=== PATIENT | female | born 1980 | race Caucasian/White ===

== ENCOUNTER 2017-05-15 15:18 | Emergency (ER) | payer MEDICAID, OTHER ==
[2017-05-15 18:05] VITALS: BP 147/102
[2017-05-15] MEDS ORDERED: TETANUS/DIPHTHERIA/PERTUSSIS 0.5 ML SYRINGE IM ONE ×2 (18:11→18:21)
--- NOTE | 2017-05-15 18:22 | ED Physician Documentation ---
History of Present Illness - Stated complaint Stated Complaint: L KNEE LAC - Chief complaint Chief Complaint: Ext Problem - History obtained from History obtained from: Patient (pt here for lceration to the left knee. states that she cut it on her desk.) Review of Systems Skin: reports: Laceration (s) (left knee) Musculoskeletal: denies: Extremity pain, Joint pain, Joint swelling Neurologic: denies: Focal weakness, Numbness PD PAST MEDICAL HISTORY - Past Medical History Past Medical History: No - Past Surgical History Past Surgical History: No - Present Medications Home Medications: Ambulatory Orders Medication Instructions Recorded Confirmed No Known Home Medications [No 05/15/17 05/15/17 Known Home Medications] - Allergies Allergies/Adverse Reactions: Allergies Allergy/AdvReac Type Severity Reaction Status Date / Time No Known Drug Allergies Allergy Verified 05/15/17 15:56 - Social History Does the pt smoke?: No Smoking Status: Never smoker PD ED PE NORMAL - Vitals Vital signs reviewed: Yes - General General: Alert and oriented X 3, No acute distress - Derm Derm: Other (2 cm laceration to the left anterior knee no active bleeding. ) - Extremities Extremities: Other (laceration to the left knee. ) - Neuro Neuro: Other (sensation intact to the left knee ) Results - Vitals Vitals: Vital Signs - 24 hr 05/15/17 05/15/17 15:54 18:04 Temperature 36.6 C Heart Rate 88 82 Respiratory 17 16 Rate Blood Pressure 140/81 H 147/102 H O2 Saturation 99 100 Oxygen O2 Source Room air Procedures - Laceration (location) knee Wound type: Linear Neurovascular status: Sensory intact, Vascular intact Anesthesia: Lidocaine 2% (3cc) Wound Preparation: Irrigated copiously NS Skin layer closure: Sutures - enter # (4), Other (3-0 vicryl) Other: Patient tolerated well Complexity: Simple PD MEDICAL DECISION MAKING - ED course Complexity details: d/w patient ED course: pt with 2 cm laceration to the knee. closed per above. N/V intact. pt given care instruction. Departure - Departure Disposition: 01 Home, Self Care Clinical Impression: Laceration Condition: Good Instructions: ED Laceration Sure Close Follow-Up: Andi Hunt MD [Primary Care Provider] - Comments: Keep the area clean and dry. Have the sutures removed in 10 days. return to the ER for any new or worsening symptoms
== END 2017-05-15 18:29 | disposition home or self-care (01) ==
LOC: ED 15:18
DX: S81.012A Laceration without foreign body, left knee, initial encounter (principal); W45.8XXA Other foreign body or object entering through skin, initial encounter; Z23 Encounter for immunization
CPT/HCPCS: 12001; 90471; 99282; 99283

== ENCOUNTER 2019-05-17 14:11 | Emergency (ER) | payer SELFPAY ==
[2019-05-17] MEDS ORDERED: SODIUM CHLORIDE 0.9% 1,000 ML IV ONE ×2 (14:30)
[2019-05-17] MEDS ORDERED: METOCLOPRAMIDE 10 MG/2 ML VIAL IVP STA (14:30)
--- NOTE | 2019-05-17 14:31 | ED Physician Documentation ---
PD HPI NVD - Stated complaint Stated Complaint: N/V - Chief complaint Chief Complaint: Abd Pain - History obtained from History obtained from: Patient - History of Present Illness Timing - onset: Other (G3, P2 at 9-1/2 weeks with vomiting for the last 6 days despite trying B6, Unisom, Phenergan, and Zofran at home. No abdominal pain, cramping or bleeding. She has a history of hyperemesis with previous pregnancies.) Review of Systems Constitutional: denies: Fever, Chills, Myalgias Cardiac: reports: Reviewed and negative Respiratory: reports: Reviewed and negative GI: reports: Nausea, Vomiting. denies: Abdominal Pain, Diarrhea PD PAST MEDICAL HISTORY - Past Surgical History Past Surgical History: No - Present Medications Home Medications: Ambulatory Orders Medication Instructions Recorded Confirmed Metoclopramide [Reglan] 10 mg PO Q6H PRN #20 tablet 05/17/19 - Allergies Allergies/Adverse Reactions: Allergies Allergy/AdvReac Type Severity Reaction Status Date / Time No Known Drug Allergies Allergy Verified 05/17/19 14:17 - Social History Does the pt smoke?: No Smoking Status: Never smoker PD ED PE NORMAL - Vitals Vital signs reviewed: Yes - General General: Alert and oriented X 3, No acute distress - Respiratory Respiratory: No respiratory distress - Abdomen Abdomen: Normal bowel sounds, Soft, Non tender - Female Female : Other (Bedside ultrasound demonstrates single live intrauterine with heart rate of 165) - Neuro Neuro: Alert and oriented X 3, Normal speech Results - Vitals Vitals: Vital Signs - 24 hr 05/17/19 05/17/19 14:17 14:19 Temperature 36.5 C Heart Rate 86 86 Respiratory 14 14 Rate Blood Pressure 138/77 H 138/77 H O2 Saturation 99 99 Oxygen O2 Source Room air - Labs Labs: Laboratory Tests 05/17/19 05/17/19 05/17/19 14:20 14:20 14:42 Sodium 136 Potassium 3.4 L Chloride 102 Carbon Dioxide 23 Anion Gap 11.0 BUN 10 Creatinine 0.7 Estimated GFR (MDRD) 95 Glucose 91 Calcium 9.5 Total Bilirubin 1.3 H AST 17 ALT 14 Alkaline Phosphatase 32 L Total Protein 7.8 Albumin 4.6 Globulin 3.2 Albumin/Globulin Ratio 1.4 Lipase 41 Urine Color YELLOW Urine Clarity CLOUDY Urine pH 6.0 Ur Specific [place] >=1.030 H 1.030 Urine Protein NEGATIVE Urine Glucose (UA) NEGATIVE Urine Ketones 80 Urine Occult Blood NEGATIVE Urine Nitrite NEGATIVE Urine Bilirubin NEGATIVE Urine Urobilinogen 0.2 (NORMAL) Ur Leukocyte Esterase SMALL H Urine RBC 0-5 Urine WBC 0-3 Ur Squamous Epith Cells MANY Squamous H Urine Bacteria Rare Urine Mucus Moderate Strands Ur Microscopic Review INDICATED Urine Culture Comments NOT INDICATED Urine HCG, Qual POSITIVE PD MEDICAL DECISION MAKING - ED course ED course: 38-year-old woman with apparent hyperemesis gravidarum. After some antiemetics and IV fluids she was feeling much better and passed an oral challenge. Departure - Departure Disposition: Home, Self Care Clinical Impression: Hyperemesis gravidarum Condition: Good Record reviewed to determine appropriate education?: Yes Instructions: ED Preg Morning Sickness Prescriptions: Metoclopramide [Reglan] 10 mg PO Q6H PRN #20 tablet PRN Reason: nausea or headache Comments: Call your doctor to arrange a follow-up appointment, make the next available appointment. In the interim, return anytime if worse or if new symptoms develop.
[2019-05-17 14:40] LABS: CLARITY,URINE CLOUDY (CLEAR); KETONES,URINE (UA) 80 mg/dL (NEGATIVE); LEUKOCYTE ESTERASE, URINE SMALL (NEGATIVE); NITRITE,URINE NEGATIVE (NEGATIVE); OCCULT BLOOD,URINE NEGATIVE (NEGATIVE); PROTEIN,URINE NEGATIVE (NEGATIVE); UROBILINOGEN,URINE 0.2 (NORMAL) E.U./dL (NORMAL)
[2019-05-17 14:41] LABS: BILIRUBIN,URINE NEGATIVE (NEGATIVE); GLUCOSE, URINE (UA) NEGATIVE (NEGATIVE); ICTOTEST,URINE NEGATIVE
[2019-05-17 14:45] LABS: BACTERIA,URINE Rare /HPF (None Seen); MUCUS,URINE Moderate Strands; RBC,URINE 0-5 /HPF (0-5); SQUAMOUS EPITHELIAL CELL,UR MANY Squamous (<= Few)
[2019-05-17 14:52] LABS: HCG UR QUAL POSITIVE
[2019-05-17 15:16] LABS: ALBUMIN 4.6 g/dL (3.2-5.5); ALBUMIN/GLOBULIN RATIO 1.4 (1.0-2.2); BILIRUBIN,TOTAL 1.3 mg/dL (0.2-1.0); CALCIUM 9.5 mg/dL (8.5-10.3); CREATININE 0.7 mg/dL (0.4-1.0); TOTAL PROTEIN 7.8 g/dL (6.7-8.2)
[2019-05-17 16:46] VITALS: BP 117/63
== END 2019-05-17 16:49 | disposition home or self-care (01) ==
LOC: ED 14:11
DX: O21.0 Mild hyperemesis gravidarum (principal); Z3A.09 9 weeks gestation of pregnancy
CPT/HCPCS: 36415; 80053; 81001; 81025; 83690; 96361; 96374; 99284; J2765; 81003; 87086

== ENCOUNTER 2019-06-08 06:30 | Observation (INO) | payer OTHER ==
[2019-06-08 06:58] LABS: BILIRUBIN,URINE NEGATIVE (NEGATIVE); GLUCOSE, URINE (UA) NEGATIVE (NEGATIVE); KETONES,URINE (UA) NEGATIVE (NEGATIVE); LEUKOCYTE ESTERASE, URINE NEGATIVE (NEGATIVE); NITRITE,URINE NEGATIVE (NEGATIVE); OCCULT BLOOD,URINE NEGATIVE (NEGATIVE); PROTEIN,URINE NEGATIVE (NEGATIVE); UROBILINOGEN,URINE 0.2 (NORMAL) E.U./dL (NORMAL)
[2019-06-08 07:10] LABS: CLARITY,URINE CLEAR (CLEAR)
--- NOTE | 2019-06-08 07:29 | ED Physician Documentation ---
History of Present Illness - Stated complaint Stated Complaint: FEMALE - Chief complaint Chief Complaint: Abd Pain - Additonal information Additional information: This is a 38-year-old G3, P2 female at 13 weeks with a confirmed intrauterine by a 7-week ultrasound done at [place], who is now established with Dr. Burrell, who presents with suprapubic pain. Patient has had hyperemesis gravidarum and she has been taking Reglan every 6 hours and and she recently had an diphenhydramine 25 mg at night. This is controlled her hyperemesis quite well, but over the last several nights she has had to wake up frequently to urin ate about 6 times a night. She noted that she was not urinating very much each time. Last night she tried to urinate and she was unable to so she stood up walked around tried taking a shower nothing seemed to work and pressure suprapubically was getting worse so she presented to the emergency department. Here she had a bladder scan which was shown to have 700 cc of urine, straight cath was performed and patient had relief of her symptoms. She is never had urinary retention in the past. She denies constipation. She denies fever or dysuria. Review of Systems Constitutional: denies: Fever Cardiac: denies: Chest pain / pressure GI: reports: Abdominal Pain : reports: Frequency PD PAST MEDICAL HISTORY - Past Medical History Past Medical History: No - Past Surgical History Past Surgical History: No - Allergies Allergies/Adverse Reactions: Allergies Allergy/AdvReac Type Severity Reaction Status Date / Time No Known Drug Allergies Allergy Verified 05/17/19 14:17 - Social History Does the pt smoke?: No Smoking Status: Never smoker Does the pt drink ETOH?: No Does the pt have substance abuse?: No - Immunizations Immunizations are current?: Yes - POLST Patient has POLST: No PD ED PE NORMAL - Vitals Vital signs reviewed: Yes - General General: Alert and oriented X 3, No acute distress - HEENT HEENT: PERRL - Cardiac Cardiac: RRR - Respiratory Respiratory: Clear bilaterally - Abdomen Abdomen: Normal bowel sounds, Soft, Non tender, Non distended - Derm Derm: Warm and dry - Extremities Extremities: No deformity - Neuro Neuro: Alert and oriented X 3 - Psych Psych: Normal mood, Normal affect Results - Vitals Vitals: Oxygen O2 Source Room air - Labs Labs: Laboratory Tests 06/08/19 06/08/19 06/08/19 06:48 07:51 07:51 WBC RBC Hgb Hct MCV MCH MCHC RDW Plt Count MPV Neut # (Auto) Lymph # (Auto) [place] # (Auto) Eos # (Auto) Baso # (Auto) Absolute Nucleated RBC Nucleated RBC % Sodium 135 Potassium 3.6 Chloride 103 Carbon Dioxide 24 Anion Gap 8.0 BUN 7 Creatinine 0.6 Estimated GFR (MDRD) 113 Glucose 89 Calcium 9.1 TSH 1.51 Urine Color YELLOW Urine Clarity CLEAR Urine pH 7.0 Ur Specific [place] 1.010 Urine Protein NEGATIVE Urine Glucose (UA) NEGATIVE Urine Ketones NEGATIVE Urine Occult Blood NEGATIVE Urine Nitrite NEGATIVE Urine Bilirubin NEGATIVE Urine Urobilinogen 0.2 (NORMAL) Ur Leukocyte Esterase NEGATIVE Ur Microscopic Review NOT INDICATED Urine Culture Comments NOT INDICATED Rubella IgG Antibody 102.8 06/08/19 07:51 WBC 6.8 RBC 4.36 Hgb 12.7 Hct 38.1 MCV 87.4 MCH 29.1 MCHC 33.3 RDW 12.4 Plt Count 239 MPV 11.2 H Neut # (Auto) 5.0 Lymph # (Auto) 1.2 L [place] # (Auto) 0.4 Eos # (Auto) 0.1 Baso # (Auto) 0.1 Absolute Nucleated RBC 0.00 Nucleated RBC % 0.0 Sodium Potassium Chloride Carbon Dioxide Anion Gap BUN Creatinine Estimated GFR (MDRD) Glucose Calcium TSH Urine Color Urine Clarity Urine pH Ur Specific [place] Urine Protein Urine Glucose (UA) Urine Ketones Urine Occult Blood Urine Nitrite Urine Bilirubin Urine Urobilinogen Ur Leukocyte Esterase Ur Microscopic Review Urine Culture Comments Rubella IgG Antibody - Rads (name of study) US OB bedside Radiology: Other (Single intrauterine , good movement, heart rate 148) PD MEDICAL DECISION MAKING - ED course ED course: Pt presents with acute urinary retention in . She feels much better after straight catheterization. UA is unremarkable, labs show no JEROMY. She is on benadryl but at only low doses and this is unlikely to cause her degree of retention. No back pain to suggest cauda equina. I called and spoke with Dr. Kimble of obstetrics and gynecology, who after hearing the case was suspicious for incarcerated retroverted uterus causing bladder outlet obstruction. She promptly came and evaluated the patient, and found that she did indeed have an incarcerated retroverted uterus. Acevedo catheter was placed in the patient and the patient was transferred to the labor and delivery area where Dr. Kimble will reposition the uterus. Pt agrees with this plan. Departure - Departure Disposition: ED Place in Observation Clinical Impression: Urinary retention Incarcerated gravid uterus Qualifiers: Trimester: first trimester Qualified Code(s): O34.511 - Maternal care for incarceration of gravid uterus, first trimester Condition: Good Discharge Date/Time: 06/08/19 09:55
[2019-06-08 08:05] LABS: CALCIUM 9.1 mg/dL (8.5-10.3); CREATININE 0.6 mg/dL (0.4-1.0)
[2019-06-08] MEDS ORDERED: LACTATED RINGERS 1,000 ML IV ONE (10:16)
[2019-06-08] MEDS ORDERED: LIDOCAINE TOPICAL 4% 160 MG/4 ML KIT TOP ONE (10:18)
[2019-06-08 10:20] LABS: BASOPHILS # (AUTO) 0.1 10^3/uL (0.0-0.1); BASOPHILS % (AUTO) 0.9 %; EOSINOPHILS # (AUTO) 0.1 10^3/uL (0.0-0.7); EOSINOPHILS % (AUTO) 1.3 %; HGB - HEMOGLOBIN 12.7 g/dL (12.0-16.0); LYMPHOCYTES # (AUTO) 1.2 10^3/uL (1.5-3.5); LYMPHOCYTES % (AUTO) 17.8 %; MEAN CORPUSCULAR HEMOGLOBIN 29.1 pg (27.0-31.0); MEAN CORPUSCULAR HGB CONC 33.3 g/dL (32.0-36.0); MEAN CORPUSCULAR VOLUME 87.4 fL (81.0-99.0); MEAN PLATELET VOLUME 11.2 fL (7.9-10.8); MONOCYTES # (AUTO) 0.4 10^3/uL (0.0-1.0); NEUTROPHILS % (AUTO) 73.7 %; PLT - PLATELET COUNT 239 10^3/uL (130-450); RED BLOOD COUNT 4.36 10^6/uL (4.20-5.40); RED CELL DISTRIBUTION WIDTH 12.4 % (12.0-15.0); WHITE BLOOD COUNT 6.8 x10^3/uL (4.8-10.8)
--- NOTE | 2019-06-08 10:22 | HISTORY & PHYSICAL EXAMINATION ---
Chief Complaint - Chief Complaint Chief Complaint: 38yo at 13 weeks presents with complete urinary outflow obstruction History of Present Illness - Admitted From Admitted From:: ER - History of Present Illness HPI Comment/Other: 38yo at 13 weeks with progressive difficulty urinating over the past week u ntil she was completely unable to urinate and noted severe pain. No n/v/f/c. No vaginal bleeding. On presentation to ER was cathed for >700cc urine, subsequently continued to be unable to void. Normal labs. History - Past Medical History Respiratory: reports: None Neuro: reports: None Endocrine/Autoimmune: reports: None GI: reports: GERD ACCOUNT ENGINEER: reports: None : reports: None HEENT: reports: None Psych: reports: None MRSA Hx?: No - Past Surgical History General: reports: Other (Umbilical herniorrhaphy) Other past surgical history: x2 full term, no complications - POLST Patient has POLST: No Meds/Allgy - Home Medications Home Medications: Ambulatory Orders Medication Instructions Recorded Confirmed Metoclopramide [Reglan] 10 mg PO Q6H PRN #20 tablet 05/17/19 06/08/19 - Allergies Allergies/Adverse Reactions: Allergies Allergy/AdvReac Type Severity Reaction Status Date / Time No Known Drug Allergies Allergy Verified 05/17/19 14:17 Review of Systems - All Other Systems All Other Systems: reports: Other (Negative except as noted) Exam - Vital Signs Vital Signs: Vital Signs x48h Temp Pulse Resp BP Pulse Ox 06/08/19 09:45 77 16 117/77 97 06/08/19 08:30 75 16 113/72 100 06/08/19 06:34 98.3 F 97 18 131/85 H 100 - Physical Exam General Appearance: positive: Alert, Mild distress Neck: positive: Nml inspection Respiratory: positive: No respiratory distress, Breath sounds nml Cardiovascular: positive: Regular rate & rhythm, No murmur Abdomen: positive: Non-tender Rectal: positive: Other (Rectovaginal exam releals 13 week sized uterus fixed in posterior pelvis c/w incarceration umder sacral promontory) Conclusion/Plan - Lab Results Fish Bones: 06/08/19 07:51 06/08/19 07:51 - Other Other Results/Comments: 38yo at 13 weeks with incarcerated uterus resulting in complete bladder obstruction. Plan mujica drainage, IV fluid as needed. Spinal anesthesia and manual reduction of trapped uterus.
[2019-06-08 10:46] LABS: THYROID STIMULATING HORMONE 1.51 uIU/mL (0.34-5.60)
--- NOTE | 2019-06-08 11:02 | ANESTHESIA ---
Pre-Anesthesia VS, & Labs - Diagnosis urinary outflow obstruction - Procedure correction of retroverted uterous Vital Signs: Temp Pulse Resp BP Pulse Ox 36.8 C 77 16 117/77 97 06/08/19 06:34 06/08/19 09:45 06/08/19 09:45 06/08/19 09:45 06/08/19 09:45 Height 5 ft 5 in Weight (kg) 72.575 kg Body Mass Index 26.6 - NPO >8 hours (sips of clears) - Is Patient ?: Yes - Lab Results Current Lab Results: Laboratory Tests 06/08/19 07:51: WBC 6.8, RBC 4.36, Hgb 12.7, Hct 38.1, MCV 87.4, MCH 29.1, MCHC 33.3, RDW 12.4, Plt Count 239, MPV 11.2 H, Neut # (Auto) 5.0, Lymph # (Auto) 1.2 L, [place] # (Auto) 0.4, Eos # (Auto) 0.1, Baso # (Auto) 0.1, Absolute Nucleated RBC 0.00, Nucleated RBC % 0.0 06/08/19 07:51: TSH 1.51 06/08/19 07:51: Sodium 135, Potassium 3.6, Chloride 103, Carbon Dioxide 24, Anion Gap 8.0, BUN 7, Creatinine 0.6, Estimated GFR (MDRD) 113, Glucose 89, Calcium 9.1 Fish Bones: 06/08/19 07:51 06/08/19 07:51 Home Medications and Allergies Active Medications Lactated Ringer's (Lr) 1,000 mls @ 999 mls/hr IV ONCE ONE Stop: 06/08/19 11:16 Allergies/Adverse Reactions: Allergies Allergy/AdvReac Type Severity Reaction Status Date / Time No Known Drug Allergies Allergy Verified 05/17/19 14:17 Anes History & Medical History - Anesthetic History Anesthesia Complications: reports: No previous complications - Medical History Cardiovascular: reports: None Pulmonary: reports: None Urinary: reports: Retention Neuro: reports: None Smoking Status: Never smoker Exam General: Alert Dental: WNL Mouth Opening: Greater than 4 Fingerbreadths Mallampati classification: I Thyromental Distance: greater than 6 cm Respiratory: Lungs clear Cardiovascular: Regular rate, Normal S1, Normal S2 Plan Anesthesia Type: Spinal Consent for Procedure(s) Verified and Reviewed: Yes Code Status: Attempt Resuscitation ASA classification: 2-Mild systemic disease Is this case an emergency?: Yes
--- NOTE | 2019-06-08 12:31 | PROCEDURE REPORT ---
Hospitalist Procedure Note - Procedure Note Procedure Note: Spinal placed. Patient positioned on hands and knees. Uterus reduced to normal position transrectally without difficulty FH 150's documented following procedure. No complications
--- NOTE | 2019-06-08 13:01 | PROVIDER PROGRESS NOTE ---
Subjective - Prog Note Date Prog Note Date: 06/08/19 Prog Note Time: 12:58 - Subjective Subjective: Very comfortable Starting to be able to move her legs, still very numb. VSS afeb A/P Stable. Continue routine care. Reg diet. Reevaluate later Continue mujica drainage. Objective - Vital Signs/Intake & Output Vital Signs: Vital Signs x48h Temp Pulse Pulse Resp BP BP Pulse Ox 06/08/19 12:55 72 15 103/61 100 06/08/19 12:35 73 16 103/48 L 100 06/08/19 12:22 69 110/52 L 06/08/19 12:02 79 16 95/51 L 95 06/08/19 11:51 86 118/46 L 06/08/19 11:42 98.2 F 89 16 123/64 100 06/08/19 09:45 77 16 117/77 97 06/08/19 08:30 75 16 113/72 100 06/08/19 06:34 98.3 F 97 18 131/85 H 100 Intake & Output: Intake & Output 06/05/19 06/06/19 06/07/19 06/08/19 23:59 23:59 23:59 23:59 Output Total 700 Balance -700 - Lab Results Fish Bones: 06/08/19 07:51 06/08/19 07:51 Other Labs: Lab Results x24hrs 06/08/19 06/08/19 06/08/19 Range/Units 10:31 07:51 07:51 WBC 6.8 (4.8-10.8) x10^3/uL RBC 4.36 (4.20-5.40) 10^6/uL Hgb 12.7 (12.0-16.0) g/dL Hct 38.1 (37.0-47.0) % MCV 87.4 (81.0-99.0) fL MCH 29.1 (27.0-31.0) pg MCHC 33.3 (32.0-36.0) g/dL RDW 12.4 (12.0-15.0) % Plt Count 239 (130-450) 10^3/uL MPV 11.2 H (7.9-10.8) fL Neut # (Auto) 5.0 (1.5-6.6) 10^3/uL Lymph # (Auto) 1.2 L (1.5-3.5) 10^3/uL [place] # (Auto) 0.4 (0.0-1.0) 10^3/uL Eos # (Auto) 0.1 (0.0-0.7) 10^3/uL Baso # (Auto) 0.1 (0.0-0.1) 10^3/uL Absolute Nucleated RBC 0.00 x10^3/uL Nucleated RBC % 0.0 /100WBC Sodium (135-145) mmol/L Potassium (3.5-5.0) mmol/L Chloride (101-111) mmol/L Carbon Dioxide (21-32) mmol/L Anion Gap (6-13) BUN (6-20) mg/dL Creatinine (0.4-1.0) mg/dL Estimated GFR (MDRD) (>89) Glucose (70-100) mg/dL Calcium (8.5-10.3) mg/dL TSH 1.51 (0.34-5.60) uIU/mL Urine Color Urine Clarity (CLEAR) Urine pH (5.0-7.5) PH Ur Specific [place] (1.002-1.030) Urine Protein (NEGATIVE) mg/dL Urine Glucose (UA) (NEGATIVE) mg/dL Urine Ketones (NEGATIVE) mg/dL Urine Occult Blood (NEGATIVE) Urine Nitrite (NEGATIVE) Urine Bilirubin (NEGATIVE) Urine Urobilinogen (NORMAL) E.U./dL Ur Leukocyte Esterase (NEGATIVE) Ur Microscopic Review Urine Culture Comments Rubella IgG Antibody 102.8 IU/mL Blood Type A POSITIVE Antibody Screen NEGATIVE 06/08/19 06/08/19 Range/Units 07:51 06:48 WBC (4.8-10.8) x10^3/uL RBC (4.20-5.40) 10^6/uL Hgb (12.0-16.0) g/dL Hct (37.0-47.0) % MCV (81.0-99.0) fL MCH (27.0-31.0) pg MCHC (32.0-36.0) g/dL RDW (12.0-15.0) % Plt Count (130-450) 10^3/uL MPV (7.9-10.8) fL Neut # (Auto) (1.5-6.6) 10^3/uL Lymph # (Auto) (1.5-3.5) 10^3/uL [place] # (Auto) (0.0-1.0) 10^3/uL Eos # (Auto) (0.0-0.7) 10^3/uL Baso # (Auto) (0.0-0.1) 10^3/uL Absolute Nucleated RBC x10^3/uL Nucleated RBC % /100WBC Sodium 135 (135-145) mmol/L Potassium 3.6 (3.5-5.0) mmol/L Chloride 103 (101-111) mmol/L Carbon Dioxide 24 (21-32) mmol/L Anion Gap 8.0 (6-13) BUN 7 (6-20) mg/dL Creatinine 0.6 (0.4-1.0) mg/dL Estimated GFR (MDRD) 113 (>89) Glucose 89 (70-100) mg/dL Calcium 9.1 (8.5-10.3) mg/dL TSH (0.34-5.60) uIU/mL Urine Color YELLOW Urine Clarity CLEAR (CLEAR) Urine pH 7.0 (5.0-7.5) PH Ur Specific [place] 1.010 (1.002-1.030) Urine Protein NEGATIVE (NEGATIVE) mg/dL Urine Glucose (UA) NEGATIVE (NEGATIVE) mg/dL Urine Ketones NEGATIVE (NEGATIVE) mg/dL Urine Occult Blood NEGATIVE (NEGATIVE) Urine Nitrite NEGATIVE (NEGATIVE) Urine Bilirubin NEGATIVE (NEGATIVE) Urine Urobilinogen 0.2 (NORMAL) (NORMAL) E.U./dL Ur Leukocyte Esterase NEGATIVE (NEGATIVE) Ur Microscopic Review NOT INDICATED Urine Culture Comments NOT INDICATED Rubella IgG Antibody IU/mL Blood Type Antibody Screen
[2019-06-08] MEDS ORDERED: ACETAMINOPHEN 500 MG TABLET PO SCH (15:00)
[2019-06-08] MEDS ORDERED: LIDOCAINE JELLY 2% 5 ML TUBE TOP ONE (17:30)
[2019-06-08] MEDS ORDERED: PROMETHAZINE INJ 25 MG in SODIUM CHLORIDE 0.9% 50 ML IV PRN (17:32)
--- NOTE | 2019-06-08 17:39 | PROVIDER PROGRESS NOTE ---
Subjective - Prog Note Date Prog Note Date: 06/08/19 Prog Note Time: 17:34 - Subjective Subjective: Feeling nauseous, crampy. C/O mild to moderate pelvic pain and pressure. No bleeding or DC. VSS afeb Abd soft. Rectovag exam reveals uterus in normal position. A/P Pain secondary to manipulation. Will treat with IV meds Acevedo removed. Will measure PVR with next void and replace catheter if necessary. Objective - Vital Signs/Intake & Output Vital Signs: Vital Signs x48h Temp Pulse Pulse Resp BP BP Pulse Ox 06/08/19 17:08 99.0 F 70 16 100/62 100 06/08/19 15:20 99.0 F 73 16 107/62 100 06/08/19 13:52 99.5 F 72 16 104/47 L 100 06/08/19 13:33 98.1 F 74 16 109/63 100 06/08/19 12:55 72 15 103/61 100 06/08/19 12:35 73 16 103/48 L 100 06/08/19 12:22 69 110/52 L 06/08/19 12:02 79 16 95/51 L 95 06/08/19 11:51 86 118/46 L 06/08/19 11:42 98.2 F 89 16 123/64 100 06/08/19 09:45 77 16 117/77 97 Intake & Output: Intake & Output 06/05/19 06/06/19 06/07/19 06/08/19 23:59 23:59 23:59 23:59 Intake Total 1400 Output Total 2200 Balance -800 - Lab Results Fish Bones: 06/08/19 07:51 06/08/19 07:51 Other Labs: Lab Results x24hrs 06/08/19 06/08/19 06/08/19 Range/Units 10:31 07:51 07:51 WBC 6.8 (4.8-10.8) x10^3/uL RBC 4.36 (4.20-5.40) 10^6/uL Hgb 12.7 (12.0-16.0) g/dL Hct 38.1 (37.0-47.0) % MCV 87.4 (81.0-99.0) fL MCH 29.1 (27.0-31.0) pg MCHC 33.3 (32.0-36.0) g/dL RDW 12.4 (12.0-15.0) % Plt Count 239 (130-450) 10^3/uL MPV 11.2 H (7.9-10.8) fL Neut # (Auto) 5.0 (1.5-6.6) 10^3/uL Lymph # (Auto) 1.2 L (1.5-3.5) 10^3/uL [place] # (Auto) 0.4 (0.0-1.0) 10^3/uL Eos # (Auto) 0.1 (0.0-0.7) 10^3/uL Baso # (Auto) 0.1 (0.0-0.1) 10^3/uL Absolute Nucleated RBC 0.00 x10^3/uL Nucleated RBC % 0.0 /100WBC Sodium (135-145) mmol/L Potassium (3.5-5.0) mmol/L Chloride (101-111) mmol/L Carbon Dioxide (21-32) mmol/L Anion Gap (6-13) BUN (6-20) mg/dL Creatinine (0.4-1.0) mg/dL Estimated GFR (MDRD) (>89) Glucose (70-100) mg/dL Calcium (8.5-10.3) mg/dL TSH 1.51 (0.34-5.60) uIU/mL Urine Color Urine Clarity (CLEAR) Urine pH (5.0-7.5) PH Ur Specific [place] (1.002-1.030) Urine Protein (NEGATIVE) mg/dL Urine Glucose (UA) (NEGATIVE) mg/dL Urine Ketones (NEGATIVE) mg/dL Urine Occult Blood (NEGATIVE) Urine Nitrite (NEGATIVE) Urine Bilirubin (NEGATIVE) Urine Urobilinogen (NORMAL) E.U./dL Ur Leukocyte Esterase (NEGATIVE) Ur Microscopic Review Urine Culture Comments Rubella IgG Antibody 102.8 IU/mL Blood Type A POSITIVE Antibody Screen NEGATIVE 06/08/19 06/08/19 Range/Units 07:51 06:48 WBC (4.8-10.8) x10^3/uL RBC (4.20-5.40) 10^6/uL Hgb (12.0-16.0) g/dL Hct (37.0-47.0) % MCV (81.0-99.0) fL MCH (27.0-31.0) pg MCHC (32.0-36.0) g/dL RDW (12.0-15.0) % Plt Count (130-450) 10^3/uL MPV (7.9-10.8) fL Neut # (Auto) (1.5-6.6) 10^3/uL Lymph # (Auto) (1.5-3.5) 10^3/uL [place] # (Auto) (0.0-1.0) 10^3/uL Eos # (Auto) (0.0-0.7) 10^3/uL Baso # (Auto) (0.0-0.1) 10^3/uL Absolute Nucleated RBC x10^3/uL Nucleated RBC % /100WBC Sodium 135 (135-145) mmol/L Potassium 3.6 (3.5-5.0) mmol/L Chloride 103 (101-111) mmol/L Carbon Dioxide 24 (21-32) mmol/L Anion Gap 8.0 (6-13) BUN 7 (6-20) mg/dL Creatinine 0.6 (0.4-1.0) mg/dL Estimated GFR (MDRD) 113 (>89) Glucose 89 (70-100) mg/dL Calcium 9.1 (8.5-10.3) mg/dL TSH (0.34-5.60) uIU/mL Urine Color YELLOW Urine Clarity CLEAR (CLEAR) Urine pH 7.0 (5.0-7.5) PH Ur Specific [place] 1.010 (1.002-1.030) Urine Protein NEGATIVE (NEGATIVE) mg/dL Urine Glucose (UA) NEGATIVE (NEGATIVE) mg/dL Urine Ketones NEGATIVE (NEGATIVE) mg/dL Urine Occult Blood NEGATIVE (NEGATIVE) Urine Nitrite NEGATIVE (NEGATIVE) Urine Bilirubin NEGATIVE (NEGATIVE) Urine Urobilinogen 0.2 (NORMAL) (NORMAL) E.U./dL Ur Leukocyte Esterase NEGATIVE (NEGATIVE) Ur Microscopic Review NOT INDICATED Urine Culture Comments NOT INDICATED Rubella IgG Antibody IU/mL Blood Type Antibody Screen
[2019-06-08] MEDS: PROMETHAZINE 25 MG TABLET PO PRN (17:51)
[2019-06-08] MEDS: fentaNYL 100 MCG/2 ML VIAL IVP PRN ×3 (17:51→23:57)
[2019-06-08] MEDS ORDERED: PHENAZOPYRIDINE 100 MG TABLET PO ONE (19:48)
--- NOTE | 2019-06-08 21:36 | PROVIDER PROGRESS NOTE ---
Subjective - Prog Note Date Prog Note Date: 06/08/19 Prog Note Time: 21:33 - Subjective Subjective: Continuing to feel bladder spasm. No longer feeling the cramping. VSS afeb Initial void after mujica removed 100cc with 380cc residual. Subsequently has voided 125/150/175cc Given pyridium. 2cc 1% lidocaine gel injected into urethra to try to alleviate the dysuria and bladder spasm. Continue voiding trial q2-4 hours throughout the night. Objective - Vital Signs/Intake & Output Vital Signs: Vital Signs x48h Temp Pulse Resp BP Pulse Ox 06/08/19 18:09 99.0 F 76 15 102/52 L 100 06/08/19 17:08 99.0 F 70 16 100/62 100 06/08/19 15:20 99.0 F 73 16 107/62 100 06/08/19 13:52 99.5 F 72 16 104/47 L 100 Intake & Output: Intake & Output 06/05/19 06/06/19 06/07/19 06/08/19 23:59 23:59 23:59 23:59 Intake Total 1400 Output Total 2400 Balance -1000 - Lab Results Fish Bones: 06/08/19 07:51 06/08/19 07:51 Other Labs: Lab Results x24hrs 06/08/19 06/08/19 06/08/19 Range/Units 10:31 07:51 07:51 WBC 6.8 (4.8-10.8) x10^3/uL RBC 4.36 (4.20-5.40) 10^6/uL Hgb 12.7 (12.0-16.0) g/dL Hct 38.1 (37.0-47.0) % MCV 87.4 (81.0-99.0) fL MCH 29.1 (27.0-31.0) pg MCHC 33.3 (32.0-36.0) g/dL RDW 12.4 (12.0-15.0) % Plt Count 239 (130-450) 10^3/uL MPV 11.2 H (7.9-10.8) fL Neut # (Auto) 5.0 (1.5-6.6) 10^3/uL Lymph # (Auto) 1.2 L (1.5-3.5) 10^3/uL [place] # (Auto) 0.4 (0.0-1.0) 10^3/uL Eos # (Auto) 0.1 (0.0-0.7) 10^3/uL Baso # (Auto) 0.1 (0.0-0.1) 10^3/uL Absolute Nucleated RBC 0.00 x10^3/uL Nucleated RBC % 0.0 /100WBC Sodium (135-145) mmol/L Potassium (3.5-5.0) mmol/L Chloride (101-111) mmol/L Carbon Dioxide (21-32) mmol/L Anion Gap (6-13) BUN (6-20) mg/dL Creatinine (0.4-1.0) mg/dL Estimated GFR (MDRD) (>89) Glucose (70-100) mg/dL Calcium (8.5-10.3) mg/dL TSH 1.51 (0.34-5.60) uIU/mL Urine Color Urine Clarity (CLEAR) Urine pH (5.0-7.5) PH Ur Specific [place] (1.002-1.030) Urine Protein (NEGATIVE) mg/dL Urine Glucose (UA) (NEGATIVE) mg/dL Urine Ketones (NEGATIVE) mg/dL Urine Occult Blood (NEGATIVE) Urine Nitrite (NEGATIVE) Urine Bilirubin (NEGATIVE) Urine Urobilinogen (NORMAL) E.U./dL Ur Leukocyte Esterase (NEGATIVE) Ur Microscopic Review Urine Culture Comments Rubella IgG Antibody 102.8 IU/mL Blood Type A POSITIVE Antibody Screen NEGATIVE 06/08/19 06/08/19 Range/Units 07:51 06:48 WBC (4.8-10.8) x10^3/uL RBC (4.20-5.40) 10^6/uL Hgb (12.0-16.0) g/dL Hct (37.0-47.0) % MCV (81.0-99.0) fL MCH (27.0-31.0) pg MCHC (32.0-36.0) g/dL RDW (12.0-15.0) % Plt Count (130-450) 10^3/uL MPV (7.9-10.8) fL Neut # (Auto) (1.5-6.6) 10^3/uL Lymph # (Auto) (1.5-3.5) 10^3/uL [place] # (Auto) (0.0-1.0) 10^3/uL Eos # (Auto) (0.0-0.7) 10^3/uL Baso # (Auto) (0.0-0.1) 10^3/uL Absolute Nucleated RBC x10^3/uL Nucleated RBC % /100WBC Sodium 135 (135-145) mmol/L Potassium 3.6 (3.5-5.0) mmol/L Chloride 103 (101-111) mmol/L Carbon Dioxide 24 (21-32) mmol/L Anion Gap 8.0 (6-13) BUN 7 (6-20) mg/dL Creatinine 0.6 (0.4-1.0) mg/dL Estimated GFR (MDRD) 113 (>89) Glucose 89 (70-100) mg/dL Calcium 9.1 (8.5-10.3) mg/dL TSH (0.34-5.60) uIU/mL Urine Color YELLOW Urine Clarity CLEAR (CLEAR) Urine pH 7.0 (5.0-7.5) PH Ur Specific [place] 1.010 (1.002-1.030) Urine Protein NEGATIVE (NEGATIVE) mg/dL Urine Glucose (UA) NEGATIVE (NEGATIVE) mg/dL Urine Ketones NEGATIVE (NEGATIVE) mg/dL Urine Occult Blood NEGATIVE (NEGATIVE) Urine Nitrite NEGATIVE (NEGATIVE) Urine Bilirubin NEGATIVE (NEGATIVE) Urine Urobilinogen 0.2 (NORMAL) (NORMAL) E.U./dL Ur Leukocyte Esterase NEGATIVE (NEGATIVE) Ur Microscopic Review NOT INDICATED Urine Culture Comments NOT INDICATED Rubella IgG Antibody IU/mL Blood Type Antibody Screen
[2019-06-08] MEDS ORDERED: ZOLPIDEM 5 MG TABLET PO PRN (22:16)
[2019-06-09] MEDS: fentaNYL 100 MCG/2 ML VIAL IVP PRN ×2 (02:49→06:08)
[2019-06-09] MEDS: SODIUM CHLORIDE FLUSH 0.9% 10 ML SYRINGE IVP PRN ×3 (02:49→23:10)
[2019-06-09] MEDS ORDERED: PHENAZOPYRIDINE 100 MG TABLET PO SCH (04:30)
--- NOTE | 2019-06-09 07:06 | PROVIDER PROGRESS NOTE ---
Subjective - Prog Note Date Prog Note Date: 06/09/19 Prog Note Time: 07:02 - Subjective Subjective: HD #2 Nausea resolved. Pelvic pressure, cramping resolved. Continues to have significant postvoid bladder spasm requiring narcotics Last two voids 175-200cc w 90cc PVR VSS afeb Abd soft, non-tender; suprapubic tenderness resolved Uterus 13 week size, palpable over pubis A/P Minimal improvement in pain following urination with pyridium. Will DC. Add hydroxizine. Consider cimetidine however, is not on formulary here. Continue current pain management plan. Objective - Vital Signs/Intake & Output Vital Signs: Vital Signs x48h Temp Pulse Resp BP Pulse Ox 06/09/19 04:25 98.2 F 69 16 105/48 L 100 06/09/19 00:30 98.2 F 63 16 104/54 L 98 06/08/19 23:51 98.2 F 63 16 104/54 L 98 Intake & Output: Intake & Output 06/06/19 06/07/19 06/08/19 06/09/19 23:59 23:59 23:59 23:59 Intake Total 1400 Output Total 3215 1250 Balance -1815 -1250 - Lab Results Fish Bones: 06/08/19 07:51 06/08/19 07:51 Other Labs: Lab Results x24hrs 06/08/19 06/08/19 06/08/19 Range/Units 10:31 07:51 07:51 WBC 6.8 (4.8-10.8) x10^3/uL RBC 4.36 (4.20-5.40) 10^6/uL Hgb 12.7 (12.0-16.0) g/dL Hct 38.1 (37.0-47.0) % MCV 87.4 (81.0-99.0) fL MCH 29.1 (27.0-31.0) pg MCHC 33.3 (32.0-36.0) g/dL RDW 12.4 (12.0-15.0) % Plt Count 239 (130-450) 10^3/uL MPV 11.2 H (7.9-10.8) fL Neut # (Auto) 5.0 (1.5-6.6) 10^3/uL Lymph # (Auto) 1.2 L (1.5-3.5) 10^3/uL [place] # (Auto) 0.4 (0.0-1.0) 10^3/uL Eos # (Auto) 0.1 (0.0-0.7) 10^3/uL Baso # (Auto) 0.1 (0.0-0.1) 10^3/uL Absolute Nucleated RBC 0.00 x10^3/uL Nucleated RBC % 0.0 /100WBC Sodium (135-145) mmol/L Potassium (3.5-5.0) mmol/L Chloride (101-111) mmol/L Carbon Dioxide (21-32) mmol/L Anion Gap (6-13) BUN (6-20) mg/dL Creatinine (0.4-1.0) mg/dL Estimated GFR (MDRD) (>89) Glucose (70-100) mg/dL Calcium (8.5-10.3) mg/dL TSH 1.51 (0.34-5.60) uIU/mL Urine Color Urine Clarity (CLEAR) Urine pH (5.0-7.5) PH Ur Specific [place] (1.002-1.030) Urine Protein (NEGATIVE) mg/dL Urine Glucose (UA) (NEGATIVE) mg/dL Urine Ketones (NEGATIVE) mg/dL Urine Occult Blood (NEGATIVE) Urine Nitrite (NEGATIVE) Urine Bilirubin (NEGATIVE) Urine Urobilinogen (NORMAL) E.U./dL Ur Leukocyte Esterase (NEGATIVE) Ur Microscopic Review Urine Culture Comments Rubella IgG Antibody 102.8 IU/mL Blood Type A POSITIVE Antibody Screen NEGATIVE 06/08/19 06/08/19 Range/Units 07:51 06:48 WBC (4.8-10.8) x10^3/uL RBC (4.20-5.40) 10^6/uL Hgb (12.0-16.0) g/dL Hct (37.0-47.0) % MCV (81.0-99.0) fL MCH (27.0-31.0) pg MCHC (32.0-36.0) g/dL RDW (12.0-15.0) % Plt Count (130-450) 10^3/uL MPV (7.9-10.8) fL Neut # (Auto) (1.5-6.6) 10^3/uL Lymph # (Auto) (1.5-3.5) 10^3/uL [place] # (Auto) (0.0-1.0) 10^3/uL Eos # (Auto) (0.0-0.7) 10^3/uL Baso # (Auto) (0.0-0.1) 10^3/uL Absolute Nucleated RBC x10^3/uL Nucleated RBC % /100WBC Sodium 135 (135-145) mmol/L Potassium 3.6 (3.5-5.0) mmol/L Chloride 103 (101-111) mmol/L Carbon Dioxide 24 (21-32) mmol/L Anion Gap 8.0 (6-13) BUN 7 (6-20) mg/dL Creatinine 0.6 (0.4-1.0) mg/dL Estimated GFR (MDRD) 113 (>89) Glucose 89 (70-100) mg/dL Calcium 9.1 (8.5-10.3) mg/dL TSH (0.34-5.60) uIU/mL Urine Color YELLOW Urine Clarity CLEAR (CLEAR) Urine pH 7.0 (5.0-7.5) PH Ur Specific [place] 1.010 (1.002-1.030) Urine Protein NEGATIVE (NEGATIVE) mg/dL Urine Glucose (UA) NEGATIVE (NEGATIVE) mg/dL Urine Ketones NEGATIVE (NEGATIVE) mg/dL Urine Occult Blood NEGATIVE (NEGATIVE) Urine Nitrite NEGATIVE (NEGATIVE) Urine Bilirubin NEGATIVE (NEGATIVE) Urine Urobilinogen 0.2 (NORMAL) (NORMAL) E.U./dL Ur Leukocyte Esterase NEGATIVE (NEGATIVE) Ur Microscopic Review NOT INDICATED Urine Culture Comments NOT INDICATED Rubella IgG Antibody IU/mL Blood Type Antibody Screen
[2019-06-09] MEDS ORDERED: FAMOTIDINE 20 MG TABLET PO SCH (07:14)
[2019-06-09] MEDS: hydrOXYzine PAMOATE 25 MG CAPSULE PO SCH ×2 (08:17→19:48)
[2019-06-09] MEDS: PROMETHAZINE 25 MG TABLET PO PRN ×2 (08:17→18:14)
--- NOTE | 2019-06-09 09:04 | DISCHARGE SUMMARY ---
Discharge Summary Admit Date: 06/08/19 Discharge Date: 06/09/19 Discharging Provider: Ardi Kimble MD Code Status: Attempt Resuscitation Condition at Discharge: Good Discharge Disposition: 01 Home, Self Care - DIAGNOSES Admission Diagnoses: Incarcerated uterus Complete bladder obstruction - HPI History of Present Illness: 38yo at 13 weeks who presented with 1 1/2 weeks of progressive pelvic pain and urinary obstruction. - HOSPITAL COURSE Hospital Course: On presentation she had 10/10 pain and had been unable to void for 8-10 hours. She was cathed for ~800cc. On exam a mass consistent with uterine incarceration was noted on rectovaginal exam. A spinal was placed and the uterus reduced into its normal position. Nml FH tones were noted. Her pelvic pain resolved however she continued to have significant post void bladder spasm which was treated initially with pyridium and lidocaine instilled in the bladder. On HD #2 vistaril and pepcid were started, pyridium was stopped. She was initially unable to adequately empty her bladder whe the mujica was removed, and this improved overnight. Care was signed out to Dr Plaza who will continue narrative until discharge. - ALLERGIES Allergies/Adverse Reactions: Allergies Allergy/AdvReac Type Severity Reaction Status Date / Time No Known Drug Allergies Allergy Verified 05/17/19 14:17 - LABS Result Diagrams: 06/08/19 07:51 06/08/19 07:51
[2019-06-09] MEDS: oxyCODONE 5 MG TABLET PO PRN ×2 (09:48→13:55)
[2019-06-09 14:24] LABS: BILIRUBIN,URINE NEGATIVE (NEGATIVE); GLUCOSE, URINE (UA) NEGATIVE (NEGATIVE); KETONES,URINE (UA) NEGATIVE (NEGATIVE); LEUKOCYTE ESTERASE, URINE LARGE (NEGATIVE); NITRITE,URINE POSITIVE (NEGATIVE); OCCULT BLOOD,URINE MODERATE (NEGATIVE); PROTEIN,URINE NEGATIVE (NEGATIVE); UROBILINOGEN,URINE 0.2 (NORMAL) E.U./dL (NORMAL)
[2019-06-09 14:26] LABS: CLARITY,URINE HAZY (CLEAR)
[2019-06-09 14:48] LABS: BACTERIA,URINE Many /HPF (None Seen); RBC,URINE TNTC /HPF (0-5); SQUAMOUS EPITHELIAL CELL,UR MANY Squamous (<= Few)
--- NOTE | 2019-06-09 17:45 | PROVIDER PROGRESS NOTE ---
Subjective - Prog Note Date Prog Note Date: 06/09/19 Prog Note Time: 17:38 - Subjective Pt reports feeling: Improved (Bladder pain improving. end voiding less wiht time. residulse most 90, on ewas 140.) Objective - Vital Signs/Intake & Output Reviewed Vital Signs: Yes Vital Signs: Vital Signs x48h Temp Pulse Resp BP Pulse Ox 06/09/19 16:35 37.1 C 68 16 105/62 100 06/09/19 13:00 36.7 C 68 16 104/59 L 98 Intake & Output: Intake & Output 06/06/19 06/07/19 06/08/19 06/09/19 23:59 23:59 23:59 23:59 Intake Total 1400 1000 Output Total 3215 3850 Balance -1815 -2850 - Objective General Appearance: positive: Moderate distress Abdomen: positive: Tenderness (improving supra pubic tenderness) - Lab Results Fish Bones: 06/08/19 07:51 06/08/19 07:51 Other Labs: Lab Results x24hrs 06/09/19 Range/Units 14:00 Urine Color YELLOW Urine Clarity HAZY (CLEAR) Urine pH 6.0 (5.0-7.5) PH Ur Specific [place] 1.010 (1.002-1.030) Urine Protein NEGATIVE (NEGATIVE) mg/dL Urine Glucose (UA) NEGATIVE (NEGATIVE) mg/dL Urine Ketones NEGATIVE (NEGATIVE) mg/dL Urine Occult Blood MODERATE H (NEGATIVE) Urine Nitrite POSITIVE H (NEGATIVE) Urine Bilirubin NEGATIVE (NEGATIVE) Urine Urobilinogen 0.2 (NORMAL) (NORMAL) E.U./dL Ur Leukocyte Esterase LARGE H (NEGATIVE) Urine RBC TNTC H (0-5) /HPF Urine WBC 6-10 H (0-5) /HPF Ur Squamous Epith Cells MANY Squamous H (<= Few) Urine Bacteria Many H (None Seen) /HPF Urine Culture Comments NOT INDICATED Assessment/Plan - Problem List (1) Incarcerated gravid uterus Impression: resolving pain Qualifiers: Trimester: first trimester Qualified Code(s): O34.511 - Maternal care for incarceration of gravid uterus, first trimester (2) Head ache Impression: possible spinal as pt recently had a spinal (3) Urinary retention Impression: residules decreasing
[2019-06-09] MEDS: ACETAMINOPHEN 500 MG TABLET PO PRN ×2 (17:59→23:06)
--- NOTE | 2019-06-09 19:44 | ANESTHESIA PROCEDURE NOTE ---
Diagnosis: Headache Procedure: Sphenoid palatine ganglion block Height and Weight: Height 5 ft 5 in Weight (kg) 72.575 kg Body Mass Index 26.6 Vital Signs: Temp Pulse Resp BP Pulse Ox 37.1 C 68 16 105/62 100 06/09/19 16:35 06/09/19 16:35 06/09/19 16:35 06/09/19 16:35 06/09/19 16:35 Allergies No Known Drug Allergies Allergy (Verified 05/17/19 14:17) Procedure Notes: Patient presents with headache after spinal anesthesia on 06/08/2019. Headache is continuous but worse when upright. She describes it as a throbbing sensation at the temples. Discussed options of doing nothing, an epidural blood patch or SPGB. Risks/benefits discussed and patient decided to proceed with SPGB. After informed consent was obtained, the patient was placed in a semi-upright position and a cotton-tipped applicator was directed towards the SPG. A total of 2ml of 4% lidocaine was slowly dribbled on the cotton-tipped applicator to each side. Sites were allowed to saturate for 10 mins. Patient tolerated the procedure well. Afterwards patient reported improvement in her headache. Pain score went from 8/10 to 4/10. She was able to eat and stated she felt better.
[2019-06-09] MEDS: FAMOTIDINE 20 MG TABLET PO SCH (23:06)
[2019-06-10] MEDS: ACETAMINOPHEN 500 MG TABLET PO PRN ×2 (06:12→09:55)
[2019-06-10] MEDS: FAMOTIDINE 20 MG TABLET PO SCH (08:40)
[2019-06-10] MEDS: PROMETHAZINE 25 MG TABLET PO PRN (08:40)
[2019-06-10 10:13] LABS: BILIRUBIN,URINE NEGATIVE (NEGATIVE); GLUCOSE, URINE (UA) NEGATIVE (NEGATIVE); KETONES,URINE (UA) NEGATIVE (NEGATIVE); LEUKOCYTE ESTERASE, URINE SMALL (NEGATIVE); NITRITE,URINE NEGATIVE (NEGATIVE); OCCULT BLOOD,URINE NEGATIVE (NEGATIVE); PROTEIN,URINE NEGATIVE (NEGATIVE); UROBILINOGEN,URINE 0.2 (NORMAL) E.U./dL (NORMAL)
[2019-06-10 10:15] LABS: CLARITY,URINE CLEAR (CLEAR)
[2019-06-10 10:20] LABS: BACTERIA,URINE Rare /HPF (None Seen); RBC,URINE 0-5 /HPF (0-5); SQUAMOUS EPITHELIAL CELL,UR FEW Squamous (<= Few)
[2019-06-10 11:17] VITALS: BP 106/60
[2019-06-10] MEDS ORDERED: LIDOCAINE-MPF 2% 5 ML VIAL EP ONE (11:29)
[2019-06-10 12:15] LABS: HEPATITIS B SURFACE ANTIGEN NON-REACTIVE (NON-REACTIVE); HEPATITIS C ANTIBODY NON-REACTIVE (NON-REACTIVE)
[2019-06-10 12:29] LABS: HIV AG/AB 4TH GEN NON-REACTIVE (NON-REACTIVE)
== END 2019-06-10 11:30 | disposition home or self-care (01) ==
LOC: ED 06:30 → FBP 10:17
PROVIDERS: ADMIT Obstetrics & Gynecology; ATTEND Obstetrics & Gynecology
DX: O34.511 Maternal care for incarceration of gravid uterus, first trimester (principal); Z3A.13 13 weeks gestation of pregnancy; O99.89 Other specified diseases and conditions complicating pregnancy, childbirth and the puerperium; N32.89 Other specified disorders of bladder; R33.9 Retention of urine, unspecified; R30.0 Dysuria; R51 Headache
CPT/HCPCS: 36415; 51702; 51798; 58999; 80048; 81001; 81003; 84443; 85025; 86762; 86780; 86803; 86850; 86900; 86901; 87086; 87340; 87389; 99284; 99285; A9270; G0378; J3490; J7120; Q0169

== ENCOUNTER 2019-06-12 00:50 | Observation (INO) | payer OTHER ==
--- NOTE | 2019-06-12 01:30 | ED Physician Documentation ---
PD HPI FEMALE - Stated complaint Stated Complaint: FEM /NAUSEA/13WKS PREG - Chief complaint Chief Complaint: Abd Pain - History obtained from History obtained from: Patient - History of Present Illness Timing - onset: Enter time (0000), Today Timing - duration: Hours Timing - details: Abrupt onset, Still present Associated symptoms: Other (unable to void/pelvic pain) Contributing factors: OB-HANDLE SEWER History: G (3), P (2) Similar symptoms before: Diagnosis (urinary retention) Recently seen: Emergency Dept, Admitted - Additional information Additional information: 38-year-old 3 para 2 female at 15 weeks has developed acute urinary retention and she was admitted into the hospital last week, a Mujica catheter was placed and the patient underwent reduction of a incarcerated retroverted uterus. She was able to get the catheter out she was able to void yesterday without trouble and this evening when she awoke to go to the bathroom she was unable to urinate and she has become more and more uncomfortable. He feels her bladder very full and she is tender over the bladder. She denies any fever she has had some issues with nausea and vomiting and hyperemesis gravidarum and she is on some Phenergan. She last took a dose at about 8 PM. She has been on a number of different medications for control of nausea including Reglan and Benadryl and she is on some hydroxyzine for bladder spasm. Review of Systems Constitutional: denies: Fever, Chills, Myalgias Eyes: denies: Decreased vision Ears: denies: Ear pain Nose: denies: Rhinorrhea / runny nose, Congestion Throat: denies: Sore throat Cardiac: denies: Chest pain / pressure, Palpitations Respiratory: denies: Dyspnea, Cough GI: reports: Abdominal Pain, Nausea, Vomiting. denies: Constipation, Diarrhea : reports: Unable to Void Skin: denies: Rash Musculoskeletal: reports: Back pain. denies: Neck pain Neurologic: denies: Generalized weakness, Focal weakness, Numbness PD PAST MEDICAL HISTORY - Past Medical History Past Medical History: Yes Cardiovascular: None Respiratory: None Neuro: None Endocrine/Autoimmune: None GI: None : Retention Psych: None Musculoskeletal: None Derm: None - Past Surgical History Past Surgical History: No General: Other - Present Medications Home Medications: Ambulatory Orders Medication Instructions Recorded Confirmed Promethazine [Phenergan] 1 tab PO Q6HR PRN 06/12/19 06/12/19 - Allergies Allergies/Adverse Reactions: Allergies Allergy/AdvReac Type Severity Reaction Status Date / Time No Known Drug Allergies Allergy Verified 06/12/19 01:03 - Social History Does the pt smoke?: No Smoking Status: Never smoker Does the pt drink ETOH?: No Does the pt have substance abuse?: No - Immunizations Immunizations are current?: Yes - POLST Patient has POLST: No PD ED PE NORMAL - Vitals Vital signs reviewed: Yes (normal ) - General General: Alert and oriented X 3, Well developed/nourished, Other (appears to be in pain with risk prevention engineer tone and flat affect. ) - HEENT HEENT: Atraumatic, PERRL, EOMI - Neck Neck: Supple, no meningeal sign, No bony TTP - Respiratory Respiratory: No respiratory distress - Abdomen Abdomen: Soft, Other (lower abdominal distention and tenderness ) - Back Back: No CVA TTP, No spinal TTP - Derm Derm: Normal color, Warm and dry, No rash - Extremities Extremities: No deformity, No edema, No calf tenderness / cord - Neuro Neuro: Alert and oriented X 3, cabbage salter 2-12 intact, No motor deficit, No sensory deficit, Normal speech Eye Opening: Spontaneous Motor: Obeys Commands Verbal: Oriented GCS Score: 15 - Psych Psych: Normal mood, Normal affect Results - Vitals Vitals: Vital Signs - 24 hr 06/12/19 06/12/19 06/12/19 01:00 02:37 02:57 Temperature 36.9 C Heart Rate 75 76 75 Respiratory 18 16 18 Rate Blood Pressure 129/80 122/80 122/80 O2 Saturation 99 99 99 06/12/19 06/12/19 06/12/19 04:12 05:14 05:35 Temperature 37.1 C Heart Rate 71 67 72 Respiratory 15 16 16 Rate Blood Pressure 119/65 114/69 111/66 O2 Saturation 96 99 98 06/12/19 06:10 Temperature 36.8 C Heart Rate 69 Respiratory 14 Rate Blood Pressure 111/55 L O2 Saturation 97 Oxygen O2 Source Room air - Labs Labs: Laboratory Tests 06/12/19 06/12/19 06/12/19 01:30 04:50 04:50 WBC 6.3 RBC 4.03 L Hgb 11.5 L Hct 34.9 L MCV 86.6 MCH 28.5 MCHC 33.0 RDW 12.2 Plt Count 224 MPV 11.4 H Neut # (Auto) 4.0 Lymph # (Auto) 1.7 [place] # (Auto) 0.4 Eos # (Auto) 0.1 Baso # (Auto) 0.1 Absolute Nucleated RBC 0.00 Nucleated RBC % 0.0 Sodium 136 Potassium 3.8 Chloride 106 Carbon Dioxide 22 Anion Gap 8.0 BUN 7 Creatinine 0.6 Estimated GFR (MDRD) 113 Glucose 88 Calcium 8.8 Total Bilirubin 0.6 AST 16 ALT 15 Alkaline Phosphatase 31 L Total Protein 6.9 Albumin 4.0 Globulin 2.9 Albumin/Globulin Ratio 1.4 Lipase 37 Urine Color YELLOW Urine Clarity CLEAR Urine pH 7.0 Ur Specific [place] 1.010 Urine Protein NEGATIVE Urine Glucose (UA) NEGATIVE Urine Ketones NEGATIVE Urine Occult Blood TRACE-LYSE Urine Nitrite NEGATIVE Urine Bilirubin NEGATIVE Urine Urobilinogen 0.2 (NORMAL) Ur Leukocyte Esterase NEGATIVE Ur Microscopic Review NOT INDICATED Urine Culture Comments NOT INDICATED - Rads (name of study) OB limited u/s Radiology: Prelim report reviewed (Impression: 1. Fry live intrauterine with gestational age 14 weeks 4 days based on established VERONICA. Retr overted uterus, with the cervix elongated between the body of the uterus and the urinary bladder, compatible with a recurrent retroverted incarceration.), EMP read indepedently, See rad report PD MEDICAL DECISION MAKING - ED course Complexity details: reviewed old records, reviewed results, re-evaluated patient, considered differential, d/w patient, d/w family ED course: 38-year-old female who is 14 weeks has had an incarcerated retroflexed uterus and this has recurred. This morning she has urinary obstruction again and a mujica cath is placed with drainage of urine without relief of symptoms for the patient. She requires narcotic pain reliever for severe pressure in the pelvis. Dr. De Santiago is consulted in the case and comes to the emergency department for evaluation of the patient he is able to confirm the incarceration but not able to reduce the incarceration. He is able to consult anesthesia and plans to take the patient to the obstetrical floor for spinal anesthetic and reduction Departure - Departure Disposition: ED Transfer to [facility] Clinical Impression: Urinary retention Incarcerated gravid uterus Qualifiers: Trimester: first trimester Qualified Code(s): O34.511 - Maternal care for incarceration of gravid uterus, first trimester Discharge Date/Time: 06/12/19 06:15
[2019-06-12 02:27] LABS: BILIRUBIN,URINE NEGATIVE (NEGATIVE); CLARITY,URINE CLEAR (CLEAR); GLUCOSE, URINE (UA) NEGATIVE (NEGATIVE); KETONES,URINE (UA) NEGATIVE (NEGATIVE); LEUKOCYTE ESTERASE, URINE NEGATIVE (NEGATIVE); NITRITE,URINE NEGATIVE (NEGATIVE); OCCULT BLOOD,URINE TRACE-LYSE (NEGATIVE); PROTEIN,URINE NEGATIVE (NEGATIVE); UROBILINOGEN,URINE 0.2 (NORMAL) E.U./dL (NORMAL)
[2019-06-12] MEDS ORDERED: HYDROmorphone 1 MG/ML CARPUJECT IM STA (03:22)
[2019-06-12] MEDS ORDERED: ONDANSETRON ODT 4 MG TABLET TL STA (03:22)
[2019-06-12] MEDS ORDERED: SODIUM CHLORIDE 0.9% 1,000 ML IV ONE (04:39)
--- NOTE | 2019-06-12 04:55 | Ultrasound Report ---
Reason: eval for incarcerated retroverted uterus Procedure Date: 06/12/2019 Accession Number: [id number] / [id number] Procedure: US - OB Limited CPT Code: Final Report FULL RESULT: EXAM: LIMITED OBSTETRICAL ULTRASOUND EXAM DATE: 06/12/2019 04:36 AM. CLINICAL HISTORY: Eval for incarcerated retroverted uterus. COMPARISON: None. TECHNIQUE: Real-time sonographic evaluation of the fetus performed by the english language arts teacher. Multiple special service representative static images were saved for review. DATING: Established EGA 14 weeks 4 days with VERONICA 12/07/2019. GENERAL EVALUATION Fry . Cardiac activity: 153 bpm. movement: Visualized. Presentation: Transverse Placenta: Anterior position. Amniotic fluid: Subjectively normal. MATERNAL STRUCTURES Retroverted uterus, with cervix elongated along the anterior portion between the body of the uterus and the urinary bladder, compatible with recurrent retroverted incarceration. IMPRESSION: 1. Fry live intrauterine with gestational age 14 weeks 4 days based on established VERONICA. 2. Retroverted uterus, with the cervix elongated between the body of the uterus and the urinary bladder, compatible with recurrent retroverted incarceration. Results called to Dr. Plaza in the emergency department on 06/12/2019 at 4:50 AM. ILANA
[2019-06-12 05:06] LABS: BASOPHILS # (AUTO) 0.1 10^3/uL (0.0-0.1); BASOPHILS % (AUTO) 0.9 %; EOSINOPHILS # (AUTO) 0.1 10^3/uL (0.0-0.7); EOSINOPHILS % (AUTO) 1.7 %; HGB - HEMOGLOBIN 11.5 g/dL (12.0-16.0); LYMPHOCYTES # (AUTO) 1.7 10^3/uL (1.5-3.5); LYMPHOCYTES % (AUTO) 27.3 %; MEAN CORPUSCULAR HEMOGLOBIN 28.5 pg (27.0-31.0); MEAN CORPUSCULAR VOLUME 86.6 fL (81.0-99.0); MEAN PLATELET VOLUME 11.4 fL (7.9-10.8); MONOCYTES # (AUTO) 0.4 10^3/uL (0.0-1.0); MONOCYTES % (AUTO) 6.2 %; NEUTROPHILS % (AUTO) 63.7 %; PLT - PLATELET COUNT 224 10^3/uL (130-450); RED BLOOD COUNT 4.03 10^6/uL (4.20-5.40); RED CELL DISTRIBUTION WIDTH 12.2 % (12.0-15.0); WHITE BLOOD COUNT 6.3 x10^3/uL (4.8-10.8)
[2019-06-12 05:19] LABS: ALBUMIN/GLOBULIN RATIO 1.4 (1.0-2.2); BILIRUBIN,TOTAL 0.6 mg/dL (0.2-1.0); CALCIUM 8.8 mg/dL (8.5-10.3); CREATININE 0.6 mg/dL (0.4-1.0); TOTAL PROTEIN 6.9 g/dL (6.7-8.2)
[2019-06-12] MEDS ORDERED: HYDROmorphone 1 MG/ML CARPUJECT IVP STA (05:30)
--- NOTE | 2019-06-12 05:48 | ANESTHESIA ---
Pre-Anesthesia VS, & Labs - Diagnosis retroverted uterus - Procedure uterine manipulation Vital Signs: Temp Pulse Resp BP Pulse Ox 37.1 C 72 16 111/66 98 06/12/19 05:14 06/12/19 05:35 06/12/19 05:35 06/12/19 05:35 06/12/19 05:35 Height 5 ft 5 in Weight (kg) 70.76 kg Body Mass Index 25.9 - NPO >8 hours - Is Patient ?: Yes - Lab Results Current Lab Results: Laboratory Tests 06/12/19 04:50: Sodium 136, Potassium 3.8, Chloride 106, Carbon Dioxide 22, Anion Gap 8.0, BUN 7, Creatinine 0.6, Estimated GFR (MDRD) 113, Glucose 88, Calcium 8.8, Total Bilirubin 0.6, AST 16, ALT 15, Alkaline Phosphatase 31 L, Total Protein 6.9, Albumin 4.0, Globulin 2.9, Albumin/Globulin Ratio 1.4, Lipase 37 06/12/19 04:50: WBC 6.3, RBC 4.03 L, Hgb 11.5 L, Hct 34.9 L, MCV 86.6, MCH 28.5, MCHC 33.0, RDW 12.2, Plt Count 224, MPV 11.4 H, Neut # (Auto) 4.0, Lymph # (Auto) 1.7, [place] # (Auto) 0.4, Eos # (Auto) 0.1, Baso # (Auto) 0.1, Absolute Nucleated RBC 0.00, Nucleated RBC % 0.0 Lab results reviewed: Yes Fish Bones: 06/12/19 04:50 06/12/19 04:50 Home Medications and Allergies Home Medications: Ambulatory Orders Promethazine [Phenergan] 1 tab PO Q6HR PRN 06/12/19 Active Medications Sodium Chloride (Normal Saline 0.9%) 1,000 mls @ 150 mls/hr IV .[id number] ONE Stop: 06/12/19 11:18 Last Admin: 06/12/19 04:40 Dose: 150 mls/hr Promethazine [Phenergan] 1 tab PO Q6HR PRN 06/12/19 Allergies/Adverse Reactions: Allergies Allergy/AdvReac Type Severity Reaction Status Date / Time No Known Drug Allergies Allergy Verified 06/12/19 01:03 Anes History & Medical History - Anesthetic History Anesthesia Complications: reports: No previous complications Family history of Anesthesia Complications: Denies Family history of Malignant Hyperthermia: Denies - Medical History Cardiovascular: reports: None Pulmonary: reports: None Gastrointestinal: reports: None Urinary: reports: Retention Neuro: reports: None Musculoskeletal: reports: None Endocrine/Autoimmune: reports: None Blood Disorders: reports: None Skin: reports: None Smoking Status: Never smoker - Surgical History General: Other Exam General: Alert, Oriented x3, Cooperative Dental: WNL Mouth Openin Fingerbreadth Neck Mobility: Normal Mallampati classification: II Thyromental Distance: 4-6 cm Respiratory: Lungs clear, Normal breath sounds Cardiovascular: Regular rate Neurological: Normal speech Mental/Cognitive Status: Alert/Oriented X3, Normal for patient Cognitive Status: Within normal limits Plan Anesthesia Type: Spinal Consent for Procedure(s) Verified and Reviewed: Yes Code Status: Attempt Resuscitation ASA classification: 2-Mild systemic disease Is this case an emergency?: Yes
--- NOTE | 2019-06-12 07:15 | OPERATIVE REPORT ---
Operative Report - General Procedure Date: 06/12/19 Planned Procedure: reduction of incarcerated uterus Pre-Op Diagnosis: 13 week incarcerated uterus Procedure Performed: reduction of incarcerated uterus Post Op Diagnosis: 13 week incarcerated uterus - Procedure Note Primary Surgeon: Paolo Plaza MD Anesthesia Provider: Cipriano Zavala CRNA Anesthesia Technique: Spinal Pathology: none Indications: 13 week incarcerated uterus
--- NOTE | 2019-06-12 08:50 | PREOP HISTORY & PHYSICAL ---
DATE OF SERVICE: 06/12/2019 Physician: Paolo Plaza MD IDENTIFICATION: Patient is a 38-year-old female who is currently 14.1 weeks. CHIEF COMPLAINT: Pelvic pain. HISTORY OF PRESENT ILLNESS: Patient states at 9:00 last evening, she was unable to void and she developed pelvic pain and fullness. She has a history of having had an incarcerated uterus, which was presented on 06/08. This had to be reduced with spinal anesthesia transrectally. Post-procedure, she did well with the exception of some difficulty with headache. During the procedure, she had a spinal for anesthesia. She gives a history of having had 2 previous deliveries vaginally without difficulty. This particular time, she is having difficulties with incarcerated uterus. She is known to have a retroflexed uterus in the past. PAST MEDICAL HABITS: Patient denies any hypertensive, diabetic or cardiac disease. PAST SURGICAL HISTORY: Positive for a reapproximation of a diastasis rectus. She has no other surgeries. She has had 2 spontaneous vaginal deliveries without problems. ALLERGIES: NONE KNOWN. CURRENT MEDICATIONS: Those of oxycodone 5 mg. She has also been taking some Phenergan. ALLERGIES: NONE KNOWN. HABITS: The patient denies use of alcohol, tobacco, street or addictive drugs. PHYSICAL EXAMINATION GENERAL: The patient is a well-developed, well-nourished white female. She is complaining of moderate distress. She has received pain medication of Dilaudid. VITAL SIGNS: Stable. HEENT: Pupils are equal, round. Extraocular muscles are intact. CARDIOVASCULAR: Regular rate and rhythm without murmurs. LUNGS: Lung faustin are clear without rales or wheezes. ABDOMEN: Shows good bowel sounds. There is some tenderness in the suprapubic region. PELVIC EXAM: Reveals cervix, which is very markedly anterior and a mass in the pelvis that is tender. She has had a rectal which also shows evidence of a pelvic mass. Ultrasound confirms a diagnosis of an incarcerated uterus. IMPRESSION 1. Fourteen weeks 1 day. 2. Incarcerated uterus, recurrence. PLAN: We will administer spinal anesthesia. We will attempt to reduce the incarcerated uterus. We will either go transvaginal or transrectally at this time. Risks and benefits have been explained to the patient including those, but not limited to bleeding, infection as well as rectal or vaginal perforation. TD: 06/12/2019 05:52 JASPAL
--- NOTE | 2019-06-12 09:07 | PROCEDURE REPORT ---
DATE OF SERVICE: 06/12/2019 Physician: Paolo Plaza MD PREOPERATIVE DIAGNOSIS: A 14-week incarcerated uterus with urinary retention. POSTOPERATIVE DIAGNOSES: A 14-week incarcerated uterus with urinary retention. PROCEDURE PERFORMED: Reduction of incarcerated uterus. SURGEON: Paolo Plaza MD ANESTHESIA: Spinal with JULISA Soriano FINDINGS: The cervix is very anterior on pelvic examination and the uterus appears to fill the cul-de-sac. Ultrasound revealed evidence of a retroverted incarcerated uterus. PROCEDURE IN DETAIL: Following spinal anesthesia, patient was placed in the knee-chest position. Pelvic examination utilizing 3 digits was placed in the vagina. The cervix was noted to be very anterior. The uterus was then rotated up and out of the pelvis utilizing the pelvic examination as well as with hand in the abdomen. The patient tolerated the procedure well and the uterus was rotated out of the pelvis. A transabdominal ultrasound revealed a uterus which was intra-abdominal at this time, and there was evidence of good cardiac activity and motion. The patient tolerated the procedure well. TD: 06/12/2019 07:23 [facility] SYSTEMAngélica
[2019-06-12] MEDS ORDERED: LIDOCAINE JELLY 2% 5 ML TUBE TOP ONE (09:11)
[2019-06-12] MEDS ORDERED: fentaNYL 100 MCG/2 ML VIAL IVP PRN (09:59)
[2019-06-12] MEDS ORDERED: PHENAZOPYRIDINE 100 MG TABLET PO ONE (10:03)
[2019-06-12] MEDS: ACETAMINOPHEN 1,000 MG/100 ML 100 ML IV PRN (16:08)
[2019-06-12] MEDS ORDERED: oxyCODONE 5 MG TABLET PO PRN (16:09)
[2019-06-12] MEDS: DOCUSATE SODIUM 100 MG CAPSULE PO SCH (16:26)
[2019-06-12] MEDS: hydrOXYzine PAMOATE 25 MG CAPSULE PO PRN (16:26)
[2019-06-12] MEDS ORDERED: polyethylene glycoL 3350 17 GM PACKET PO PRN (16:29)
--- NOTE | 2019-06-12 16:52 | PROVIDER PROGRESS NOTE ---
Subjective - Prog Note Date Prog Note Date: 06/12/19 Prog Note Time: 16:43 - Subjective Pt reports feeling: No change (Pt had reduction of her incarcerated bladder under spinal anasthesia. mujica cathiter was placed for drainage.she has had problems with pain control. she was give 50 of fentanyl with good results. Because of concerns of possible bladder rupture with extravication of urine a US was performed. with releasing of the clamp following US she c/o bitterly of bpadder pain. she is being treated withvisteral as she had good results last episode. I have discussed with pharmacy the possiblilty of Ditropan. reviewed with the pt this drug adn it is a cat B i . She has elected to with hold it at this time.) Objective - Vital Signs/Intake & Output Vital Signs: Vital Signs x48h Temp Pulse Resp BP Pulse Ox 06/12/19 13:10 37.2 C 75 16 115/64 100 Intake & Output: Intake & Output 06/09/19 06/10/19 06/11/19 06/12/19 23:59 23:59 23:59 23:59 Intake Total 1300 Output Total 765 Balance 535 - Lab Results Fish Bones: 06/12/19 04:50 06/12/19 04:50 Other Labs: Lab Results x24hrs 06/12/19 06/12/19 06/12/19 Range/Units 04:50 04:50 01:30 WBC 6.3 (4.8-10.8) x10^3/uL RBC 4.03 L (4.20-5.40) 10^6/uL Hgb 11.5 L (12.0-16.0) g/dL Hct 34.9 L (37.0-47.0) % MCV 86.6 (81.0-99.0) fL MCH 28.5 (27.0-31.0) pg MCHC 33.0 (32.0-36.0) g/dL RDW 12.2 (12.0-15.0) % Plt Count 224 (130-450) 10^3/uL MPV 11.4 H (7.9-10.8) fL Neut # (Auto) 4.0 (1.5-6.6) 10^3/uL Lymph # (Auto) 1.7 (1.5-3.5) 10^3/uL [facility] # (Auto) 0.4 (0.0-1.0) 10^3/uL Eos # (Auto) 0.1 (0.0-0.7) 10^3/uL Baso # (Auto) 0.1 (0.0-0.1) 10^3/uL Absolute Nucleated RBC 0.00 x10^3/uL Nucleated RBC % 0.0 /100WBC Sodium 136 (135-145) mmol/L Potassium 3.8 (3.5-5.0) mmol/L Chloride 106 (101-111) mmol/L Carbon Dioxide 22 (21-32) mmol/L Anion Gap 8.0 (6-13) BUN 7 (6-20) mg/dL Creatinine 0.6 (0.4-1.0) mg/dL Estimated GFR (MDRD) 113 (>89) Glucose 88 (70-100) mg/dL Calcium 8.8 (8.5-10.3) mg/dL Total Bilirubin 0.6 (0.2-1.0) mg/dL AST 16 (10-42) IU/L ALT 15 (10-60) IU/L Alkaline Phosphatase 31 L (42-121) IU/L Total Protein 6.9 (6.7-8.2) g/dL Albumin 4.0 (3.2-5.5) g/dL Globulin 2.9 (2.1-4.2) g/dL Albumin/Globulin Ratio 1.4 (1.0-2.2) Lipase 37 (22-51) U/L Urine Color YELLOW Urine Clarity CLEAR (CLEAR) Urine pH 7.0 (5.0-7.5) PH Ur Specific [place] 1.010 (1.002-1.030) Urine Protein NEGATIVE (NEGATIVE) mg/dL Urine Glucose (UA) NEGATIVE (NEGATIVE) mg/dL Urine Ketones NEGATIVE (NEGATIVE) mg/dL Urine Occult Blood TRACE-LYSE (NEGATIVE) Urine Nitrite NEGATIVE (NEGATIVE) Urine Bilirubin NEGATIVE (NEGATIVE) Urine Urobilinogen 0.2 (NORMAL) (NORMAL) E.U./dL Ur Leukocyte Esterase NEGATIVE (NEGATIVE) Ur Microscopic Review NOT INDICATED Urine Culture Comments NOT INDICATED
[2019-06-12] MEDS ORDERED: OXYBUTYNIN 5MG TABLET PO SCH (17:00)
--- NOTE | 2019-06-12 17:05 | Ultrasound Report ---
Reason: pelvic pain Procedure Date: 06/12/2019 Accession Number: [id number] / [id number] Procedure: US - Pelvic Limited or F/U CPT Code: Final Report FULL RESULT: EXAM: PELVIS ULTRASOUND, LIMITED EXAM DATE: 06/12/2019 03:43 PM. CLINICAL HISTORY: Pelvic pain. COMPARISON: OBUS LIMITED 06/12/2019 RENAL US 03/23/2011. TECHNIQUE: Real-time scanning was performed with static images obtained. FINDINGS: Bladder: The initial bladder volume was the bladder is partially distended secondary to an indwelling Acevedo catheter. There is no wall thickening. There is no free fluid in the pelvis. A right extrarenal pelvis is again identified. No hydronephrosis or hydroureter. Note: The gravid uterus is neutral in position at the time of this examination. IMPRESSION: No free fluid in the pelvis to suggest bladder rupture. Results discussed with Dr. Paolo Plaza. RADIA
[2019-06-13] MEDS: ACETAMINOPHEN 1,000 MG/100 ML 100 ML IV PRN (03:59)
[2019-06-13] MEDS: hydrOXYzine PAMOATE 25 MG CAPSULE PO PRN (04:26)
[2019-06-13] MEDS ORDERED: BISACODYL 10 MG SUPP PR PRN (08:31)
--- NOTE | 2019-06-13 08:34 | PROVIDER PROGRESS NOTE ---
Subjective - Prog Note Date Prog Note Date: 06/13/19 Prog Note Time: 08:32 - Subjective Pt reports feeling: Improved (Pt notes Pain 08/11. afraid to voud. no stool since sunday) Objective - Vital Signs/Intake & Output Reviewed Vital Signs: Yes Vital Signs: Vital Signs x48h Temp Pulse Resp BP Pulse Ox 06/13/19 07:55 37.3 C 69 20 94/56 L 100 06/13/19 04:12 36.8 C 68 16 97/47 L 99 Intake & Output: Intake & Output 06/10/19 06/11/19 06/12/19 06/13/19 23:59 23:59 23:59 23:59 Intake Total 1300 350 Output Total 1520 525 Balance -220 -175 - Objective General Appearance: positive: No acute distress (08/11 pain.) Respiratory: positive: Chest non-tender, No respiratory distress, Breath sounds nml Cardiovascular: positive: Regular rate & rhythm, No murmur, No gallop Abdomen: positive: Nml bowel sounds, Tenderness (mild tenderness), Mass (uterus is palpable) Extremities: negative: Calf tenderness, Lemuel's sign/cords - Lab Results Fish Bones: 06/12/19 04:50 06/12/19 04:50 - Diagnostic Imaging Diagnostic Imaging Results: positive: Prelim report reviewed, Final report r ree Assessment/Plan - Problem List (1) Incarcerated gravid uterus Impression: uterus still is out of the pelvis. have reviewed keeping bowels moving. will leave mujica in the keep it from dispalceing the uterus back into the pelvis Pt given exercises Knee chest to try to prevent recurrence Qualifiers: Trimester: first trimester Qualified Code(s): O34.511 - Maternal care for incarceration of gravid uterus, first trimester (2) Urinary retention Impression: resolved with mujica in place. (3) Bladder spasm Impression: Pt has spasms at the end of voiding. respond ing to visteral. pt was offered ditropan but declined.
[2019-06-13] MEDS: DOCUSATE SODIUM 100 MG CAPSULE PO SCH (09:37)
[2019-06-13 11:54] VITALS: BP 123/73
[2019-06-13] MEDS ORDERED: ACETAMINOPHEN 500 MG TABLET PO PRN (12:00)
--- NOTE | 2019-06-13 12:23 | Discharge Plan ---
Discharge Plan Problem Reviewed?: Yes Disposition: Home, Self Care Condition: Good Diet: Regular Activity Restrictions: Avoid intercourse and breath holiding/bearing down Shower Restrictions: No Driving Restrictions: No Instruction Topics: Catheter Bag Urinary Empty Clean, Catheter Indwelling Urinary Dc, Leg Bag Care Dc No Smoking: If you smoke, Please STOP! Call for help. Follow-up with: Paolo Plaza MD [Provider Admit Priv/Credential] - 1 Week
[2019-06-13 13:51] LABS: RUPTURE OF MEMBRANES PLUS NEGATIVE (NEGATIVE)
[2019-06-13 17:09] LABS: CANDIDA GROUP DNA POSITIVE (NEGATIVE); CANDIDA KRUSEI DNA NEGATIVE (NEGATIVE); TRICHOMONAS VAGINALIS DNA NEGATIVE (NEGATIVE)
--- NOTE | 2019-06-14 11:45 | DISCHARGE SUMMARY ---
Physician: Magdalena Lopez MD DATE OF ADMISSION: 06/12/2019 DATE OF DISCHARGE: 06/13/2019 ADDENDUM: The patient was discharged home by Dr. Plaza following her treatment for her incarcerated u ter. The patient had not had a recent bowel movement and had been advised to avoid Valsalva and so we wanted to have her have a bowel movement prior to discharge to avoid constipation. She was given a stimulant laxative and did have a bowel movement. While we were waiting for this, she had some "l eaking". We were not sure where that was coming from and we were not sure if it was around the stuart ter or not. The patient also complained of vaginal discharge and vaginal irritation. A speculum exa m was performed revealing clumpy white discharge in the vaginal vault consistent with a yeast infecti on. The cervix was closed and mid position. There was no pooling of fluid. Valsalva was negative, nitrazine negative. ROM plus testing was negative. Vaginitis panel was negative for trichomonas or BV, and was positive for Jennifer. Rupture of membranes was ruled out. A sterile vaginal examination was performed and the cervix was found to be closed and in the mid position, which rules out any cur rent incarceration. Her discharge medication plan was updated with addin. Fluconazole 150 mg, #1 now and take #2 in 48 hours. 2. Colace 1 to 2 tablets p.o. b.i.d. to soften stool. 3. MiraLax daily to achieve daily bowel movements. 4. Magnesium citrate to take if she has not had a bowel movement in 48 hours. DISCHARGE PLAN: 1. We discussed her bowel program at length and how to avoid other Valsalva maneuvers. We taught ex ercises on the forearms and knees, elevating the buttocks up as high in the air as possible and dropp ing the chest as low as possible with rotational and back and forth movement in order to keep the tenisha sandhya free within the pelvis. 2. We discussed Acevedo management. The rationale of the Acevedo was to give her more room in the pelvi s to avoid trapping the uterus posteriorly. TD: 06/14/2019 10:46
== END 2019-06-13 14:05 | disposition home or self-care (01) ==
LOC: ED 00:50 → SDS 05:54 → FBP 06:57 → SDS 16:09 → FBP 16:10
PROVIDERS: ADMIT Obstetrics & Gynecology; ATTEND Obstetrics & Gynecology
PROC: 0US9XZZ Reposition Uterus, External Approach (ICD-10-PCS; principal; 2019-06-12)
DX: O34.511 Maternal care for incarceration of gravid uterus, first trimester (principal); O98.811 Other maternal infectious and parasitic diseases complicating pregnancy, first trimester; B37.3 Candidiasis of vulva and vagina; O99.89 Other specified diseases and conditions complicating pregnancy, childbirth and the puerperium; N32.89 Other specified disorders of bladder; R33.9 Retention of urine, unspecified; O21.0 Mild hyperemesis gravidarum; Z3A.14 14 weeks gestation of pregnancy; Z79.899 Other long term (current) drug therapy
CPT/HCPCS: 36415; 51702; 51798; 58999; 76815; 76857; 80053; 81003; 83690; 84112; 85025; 87481; 87661; 87801; 96372; 96374; 99215; 99285; A9270; G0378; J0131; J1170; J3490; Q0162; 81001; 87086

== ENCOUNTER 2019-06-26 08:00 | Outpatient (CLI) | payer OTHER | END 2019-06-26 23:59 | disposition home or self-care (01) | LOC: LAB.R 08:00 | PROVIDERS: ATTEND Obstetrics & Gynecology | DX: N30.00 Acute cystitis without hematuria (principal) | CPT/HCPCS: 87086 ==

== ENCOUNTER 2019-06-26 12:17 | Outpatient (CLI) | payer OTHER | END 2019-06-26 12:18 | disposition home or self-care (01) | LOC: LAB 12:17 | PROVIDERS: ATTEND Obstetrics & Gynecology | DX: O09.892 Supervision of other high risk pregnancies, second trimester (principal); Z3A.00 Weeks of gestation of pregnancy not specified | CPT/HCPCS: 36415; 81599 ==

== ENCOUNTER 2019-06-26 14:13 | Observation (INO) | payer OTHER ==
[2019-06-26] MEDS: cefTRIAXone 1 GM in SODIUM CHLORIDE 0.9% MINIBAG 100 ML IV SCH (15:46)
[2019-06-26] MEDS: ACETAMINOPHEN 325 MG TABLET PO PRN ×2 (15:46→20:28)
[2019-06-26] MEDS: oxyCODONE 5 MG TABLET PO PRN (16:52)
[2019-06-26] MEDS: DOCUSATE SODIUM 100 MG CAPSULE PO PRN (18:09)
[2019-06-26 18:51] LABS: BASOPHILS # (AUTO) 0.1 10^3/uL (0.0-0.1); BASOPHILS % (AUTO) 0.5 %; EOSINOPHILS # (AUTO) 0.1 10^3/uL (0.0-0.7); EOSINOPHILS % (AUTO) 0.5 %; LYMPHOCYTES # (AUTO) 1.5 10^3/uL (1.5-3.5); LYMPHOCYTES % (AUTO) 13.9 %; MEAN CORPUSCULAR HEMOGLOBIN 28.6 pg (27.0-31.0); MEAN CORPUSCULAR HGB CONC 33.2 g/dL (32.0-36.0); MEAN PLATELET VOLUME 10.5 fL (7.9-10.8); MONOCYTES # (AUTO) 0.8 10^3/uL (0.0-1.0); MONOCYTES % (AUTO) 7.3 %; NEUTROPHILS # (AUTO) 8.2 10^3/uL (1.5-6.6); NEUTROPHILS % (AUTO) 77.2 %; PLT - PLATELET COUNT 211 10^3/uL (130-450); WHITE BLOOD COUNT 10.6 x10^3/uL (4.8-10.8)
[2019-06-26 19:04] LABS: ALBUMIN 3.4 g/dL (3.2-5.5); ALBUMIN/GLOBULIN RATIO 1.1 (1.0-2.2); BILIRUBIN,TOTAL 0.5 mg/dL (0.2-1.0); CALCIUM 8.7 mg/dL (8.5-10.3); CREATININE 0.6 mg/dL (0.4-1.0); TOTAL PROTEIN 6.5 g/dL (6.7-8.2)
--- NOTE | 2019-06-26 19:37 | HISTORY & PHYSICAL EXAMINATION ---
DATE OF SERVICE: 06/26/2019 Physician: Paolo Plaza MD IDENTIFICATION: Patient is a 38-year-old , whose EDC is 12/16. CHIEF COMPLAINT: Pain and burning on urination with right flank pain. HISTORY OF PRESENT ILLNESS: Patient's has been complicated with an incarcerated uterus. T his was reduced and following recurrence it was reduced a second time. She had a Acevedo catheter was left in place to try and decrease the risk of a mass effect of the bladder holding in the pelvis. Wyatt white had this removed on Sunday. This Sunday, she developed pain and burning on urination. This has b ecome worse with time. She is now complaining of some right flank pain and tenderness. She had a ur inalysis in the office, which was positive for leukocytes. She does have a history of having had josefa dder infections in the past. This has been recurrent in nature. PAST MEDICAL HISTORY: Patient denies any hypertensive, diabetic or cardiac disease. She has a histo ry of having had anemia, dysmenorrhea, lipoma of the axilla as well as migraines. PAST SURGICAL HISTORY: Positive for hernia repair. SOCIAL HISTORY HABITS: Patient denies use of alcohol, tobacco or street or addictive drugs. She indra es with her . 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 PHYSICAL EXAMINATION GENERAL: Patient is a well-developed, well-nourished white female. She is in moderate distress at t his time. She is complaining of pain with urination as well as some right flank pain and tenderness. VITAL SIGNS: Temperature is 37.5. Heart rate is 89, blood pressure 118/60, respirations 16, O2 satu ration is 100. HEENT: Pupils are equal and round. Extraocular muscles are intact. Thyroid is not palpably enlarge d. HEART: Regular rate and rhythm without murmurs. LUNGS: Lung faustin are clear without rales or wheezes. ABDOMEN: Soft. There is tenderness over the bladder area. There is also some right flank tendernes s noted at this time. PELVIC: Reveals a cervix, which is anterior. The pelvis is empty of any uterus. Transabdominal ult rasound performed in the office shows a live , which is intra-abdominal rather than in the pelv is. IMPRESSION: 1. Gestation, 15.1 days. 2. History of an incarcerated uterus. 3. Suspected pyelonephritis. PLAN: In view of the fact that she has flank tenderness and has a history of having bladder infectio ns, it was decided to admit her with the diagnosis of pyelonephritis. She is being started on antibi otics of ceftriaxone 1 gram IV every 12 hours as recommended by up-to-date. We are giving her stool softener as well as MiraLax to prevent constipation. She is having a culture and sensitivity, which has been sent at this time to the lab. CBC as well as chem panel have been ordered. TD: 06/26/2019 19:03
[2019-06-26 19:44] LABS: BILIRUBIN,URINE NEGATIVE (NEGATIVE); GLUCOSE, URINE (UA) NEGATIVE (NEGATIVE); KETONES,URINE (UA) NEGATIVE (NEGATIVE); LEUKOCYTE ESTERASE, URINE MODERATE (NEGATIVE); NITRITE,URINE NEGATIVE (NEGATIVE); OCCULT BLOOD,URINE TRACE-INTA (NEGATIVE); PROTEIN,URINE 30 mg/dL (NEGATIVE); UROBILINOGEN,URINE 0.2 (NORMAL) E.U./dL (NORMAL)
[2019-06-26 19:53] LABS: BACTERIA,URINE Many /HPF (None Seen); CLARITY,URINE CLOUDY (CLEAR); RBC,URINE 0-5 /HPF (0-5); SQUAMOUS EPITHELIAL CELL,UR FEW Squamous (<= Few)
[2019-06-27] MEDS: oxyCODONE 5 MG TABLET PO PRN ×3 (01:13→16:14)
[2019-06-27] MEDS: ONDANSETRON ODT 4 MG TABLET TL PRN ×2 (01:14→20:14)
[2019-06-27] MEDS: ACETAMINOPHEN 325 MG TABLET PO PRN ×4 (05:48→20:14)
[2019-06-27] MEDS: DOCUSATE SODIUM 100 MG CAPSULE PO PRN ×2 (08:27→20:10)
[2019-06-27] MEDS: polyethylene glycoL 3350 17 GM PACKET PO PRN (08:27)
--- NOTE | 2019-06-27 09:55 | PROVIDER PROGRESS NOTE ---
Subjective - Prog Note Date Prog Note Date: 06/27/19 Prog Note Time: 09:55 - Subjective Pt reports feeling: Improved (Pt Pain is 2/10 prior it was 5/10. She C/O PETIT she hasen't slept well for the past two days. She is passing flatus and voiding able to empty the bladder.) Objective - Vital Signs/Intake & Output Reviewed Vital Signs: Yes Vital Signs: Vital Signs x48h Temp Pulse Resp BP Pulse Ox 06/27/19 07:41 36.8 C 86 16 95/47 L 98 06/27/19 05:45 37.0 C 70 16 103/55 L 97 Intake & Output: Intake & Output 06/24/19 06/25/19 06/26/19 06/27/19 23:59 23:59 23:59 23:59 Intake Total 100 Balance 100 - Objective General Appearance: positive: Alert, Mild distress Respiratory: positive: Chest non-tender, No respiratory distress, Breath sounds nml Cardiovascular: positive: Regular rate & rhythm, No murmur, No gallop Abdomen: positive: No organomegaly, Nml bowel sounds, No distention, Tenderness (right side of abdomin.no rebound) Back: positive: CVA tenderness (R) (niminal. improved from yesterday). negative: CVA tenderness (L) Skin: positive: Color nml, Warm, Dry Neurologic/Psychiatric: positive: Oriented x3 - Lab Results Fish Bones: 06/26/19 18:46 06/26/19 18:46 Other Labs: Lab Results x24hrs 06/26/19 06/26/19 06/26/19 Range/Units 18:46 18:46 11:30 WBC 10.6 (4.8-10.8) x10^3/uL RBC 3.50 L (4.20-5.40) 10^6/uL Hgb 10.0 L (12.0-16.0) g/dL Hct 30.1 L (37.0-47.0) % MCV 86.0 (81.0-99.0) fL MCH 28.6 (27.0-31.0) pg MCHC 33.2 (32.0-36.0) g/dL RDW 13.0 (12.0-15.0) % Plt Count 211 (130-450) 10^3/uL MPV 10.5 (7.9-10.8) fL Neut # (Auto) 8.2 H (1.5-6.6) 10^3/uL Lymph # (Auto) 1.5 (1.5-3.5) 10^3/uL [place] # (Auto) 0.8 (0.0-1.0) 10^3/uL Eos # (Auto) 0.1 (0.0-0.7) 10^3/uL Baso # (Auto) 0.1 (0.0-0.1) 10^3/uL Absolute Nucleated RBC 0.00 x10^3/uL Nucleated RBC % 0.0 /100WBC Sodium 134 L (135-145) mmol/L Potassium 3.5 (3.5-5.0) mmol/L Chloride 101 (101-111) mmol/L Carbon Dioxide 21 (21-32) mmol/L Anion Gap 12.0 (6-13) BUN 9 (6-20) mg/dL Creatinine 0.6 (0.4-1.0) mg/dL Estimated GFR (MDRD) 113 (>89) Glucose 129 H (70-100) mg/dL Calcium 8.7 (8.5-10.3) mg/dL Total Bilirubin 0.5 (0.2-1.0) mg/dL AST 14 (10-42) IU/L ALT 11 (10-60) IU/L Alkaline Phosphatase 36 L (42-121) IU/L Total Protein 6.5 L (6.7-8.2) g/dL Albumin 3.4 (3.2-5.5) g/dL Globulin 3.1 (2.1-4.2) g/dL Albumin/Globulin Ratio 1.1 (1.0-2.2) Urine Color YELLOW Urine Clarity CLOUDY (CLEAR) Urine pH 6.0 (5.0-7.5) PH Ur Specific [place] 1.025 (1.002-1.030) Urine Protein 30 H (NEGATIVE) mg/dL Urine Glucose (UA) NEGATIVE (NEGATIVE) mg/dL Urine Ketones NEGATIVE (NEGATIVE) mg/dL Urine Occult Blood TRACE-INTA (NEGATIVE) Urine Nitrite NEGATIVE (NEGATIVE) Urine Bilirubin NEGATIVE (NEGATIVE) Urine Urobilinogen 0.2 (NORMAL) (NORMAL) E.U./dL Ur Leukocyte Esterase MODERATE H (NEGATIVE) Urine RBC 0-5 (0-5) /HPF Urine WBC >25 H (0-5) /HPF Ur Squamous Epith Cells FEW Squamous (<= Few) Urine Bacteria Many H (None Seen) /HPF Ur Microscopic Review INDICATED Urine Culture Comments INDICATED ABX Reporting Has patient been on IV antibiotics over the past 48 hours?: No Assessment/Plan - Problem List (1) Pyelonephritis affecting Impression: urine grew out E coli sensitivity pending. appears to be responding. (2) Head ache Impression: probable secondary to sleep deprivation. Rx with tylenol. (3) Incarcerated gravid uterus Impression: resolved. Qualifiers: Trimester: first trimester Qualified Code(s): O34.511 - Maternal care for incarceration of gravid uterus, first trimester
[2019-06-27] MEDS: cefTRIAXone 1 GM in SODIUM CHLORIDE 0.9% MINIBAG 100 ML IV SCH (15:10)
--- NOTE | 2019-06-28 08:11 | PROVIDER PROGRESS NOTE ---
Subjective - Prog Note Date Prog Note Date: 06/28/19 Prog Note Time: 08:09 - Subjective Pt reports feeling: Improved Subjective: Pt flank resolved. feels movement. empotying the bladder Current Medications - Current Medications Current Medications: Ceftriaxone Objective - Vital Signs/Intake & Output Reviewed Vital Signs: Yes Vital Signs: Vital Signs x48h Temp Pulse Resp BP Pulse Ox 06/28/19 01:49 36.8 C 64 16 102/54 L 97 Intake & Output: Intake & Output 06/25/19 06/26/19 06/27/19 06/28/19 23:59 23:59 23:59 23:59 Intake Total 100 3600 Balance 100 3600 - Objective General Appearance: positive: No acute distress, Alert Respiratory: positive: Chest non-tender, No respiratory distress, Breath sounds nml Cardiovascular: positive: Regular rate & rhythm, No murmur, No gallop Abdomen: positive: Non-tender, Nml bowel sounds, No distention, Mass (uterus is 3 cm below the u) Back: negative: CVA tenderness (R), CVA tenderness (L) Skin: positive: Color nml, No rash, Warm, Dry Neurologic/Psychiatric: positive: Oriented x3 - Lab Results Fish Bones: 06/26/19 18:46 06/26/19 18:46 ABX Reporting Has patient been on IV antibiotics over the past 48 hours?: Yes Assessment/Plan - Problem List (1) Pyelonephritis affecting Impression: Grew E coli. sensitivities back. change to Keflex 500 qid 7 days then change to supression with macrobid. Qualifiers: Trimester: second trimester Qualified Code(s): O23.02 - Infections of kidney in , second trimester (2) Head ache Impression: resolved (3) Incarcerated gravid uterus Impression: uterus is palpated 3 cm below the belly button. Resolved Qualifiers: Trimester: first trimester Qualified Code(s): O34.511 - Maternal care for incarceration of gravid uterus, first trimester
--- NOTE | 2019-06-28 08:16 | Discharge Plan ---
Discharge Plan Problem Reviewed?: Yes Disposition: Home, Self Care Condition: Good Diet: Regular Activity Restrictions: No Restrictions Shower Restrictions: No Driving Restrictions: No No Smoking: If you smoke, Please STOP! Call for help. Follow-up with: Brigitte Garcia PA-C [Primary Care Provider] -
[2019-06-28] MEDS: polyethylene glycoL 3350 17 GM PACKET PO PRN (08:58)
[2019-06-28 09:01] VITALS: BP 111/61
[2019-06-28] MEDS: ACETAMINOPHEN 325 MG TABLET PO PRN (10:49)
[2019-06-28] MEDS ORDERED: cefTRIAXone 1 GM in SODIUM CHLORIDE 0.9% MINIBAG 100 ML IV ONE (12:00)
== END 2019-06-28 12:37 | disposition home or self-care (01) ==
LOC: WFO 14:13 → FBP 14:14 → WFO 18:58 → FBP 19:00
PROVIDERS: ADMIT Obstetrics & Gynecology; ATTEND Obstetrics & Gynecology
DX: O23.02 Infections of kidney in pregnancy, second trimester (principal); B96.20 Unspecified Escherichia coli [E. coli] as the cause of diseases classified elsewhere; R51 Headache; O09.892 Supervision of other high risk pregnancies, second trimester; Z3A.15 15 weeks gestation of pregnancy; Z87.898 Personal history of other specified conditions
CPT/HCPCS: 36415; 80053; 81001; 81599; 85025; 87086; 87181; 96365; 96366; 96376; A9270; G0378; G0379; Q0162; 81003

== ENCOUNTER 2019-07-11 10:56 | Outpatient (CLI) | payer SELFPAY | END 2019-07-11 10:57 | disposition home or self-care (01) | LOC: LAB 10:56 | DX: Z01.89 Encounter for other specified special examinations (principal) | CPT/HCPCS: 36415 ==

== ENCOUNTER 2019-07-22 15:17 | Outpatient (CLI) | payer OTHER ==
[2019-07-22 15:46] VITALS: BP 122/63
[2019-07-22 15:51] LABS: BILIRUBIN,URINE NEGATIVE (NEGATIVE); GLUCOSE, URINE (UA) NEGATIVE (NEGATIVE); KETONES,URINE (UA) NEGATIVE (NEGATIVE); LEUKOCYTE ESTERASE, URINE SMALL (NEGATIVE); NITRITE,URINE NEGATIVE (NEGATIVE); OCCULT BLOOD,URINE NEGATIVE (NEGATIVE); PH,URINE 6.5 PH (5.0-7.5); PROTEIN,URINE NEGATIVE (NEGATIVE); UROBILINOGEN,URINE 0.2 (NORMAL) E.U./dL (NORMAL)
[2019-07-22 15:54] LABS: CLARITY,URINE CLEAR (CLEAR)
[2019-07-22 16:03] LABS: BACTERIA,URINE Few /HPF (None Seen); RBC,URINE 0-5 /HPF (0-5); SQUAMOUS EPITHELIAL CELL,UR MOD Squamous (<= Few)
[2019-07-22 16:09] LABS: RUPTURE OF MEMBRANES PLUS NEGATIVE (NEGATIVE)
--- NOTE | 2019-07-22 19:33 | PROVIDER PROGRESS NOTE ---
- HPI Chief Complaint: Leakage of vaginal fluid (Pt passed fluid. Thinks that it was vaginaly. Had sex yesterday PM/) Current : Current EDU 12/17/19 Gestation 18 Weeks and 6 Days 3 Para 1 Vital Signs Temperature 37.1 C 07/22/19 15:46 Heart Rate 87 07/22/19 15:46 Respiratory Rate 16 07/22/19 15:46 Blood Pressure 122/63 07/22/19 15:46 O2 Saturation 100 07/22/19 15:46 Temperature 37.1 C 07/22/19 15:46 Heart Rate 87 07/22/19 15:46 Respiratory Rate 16 07/22/19 15:46 Blood Pressure 122/63 07/22/19 15:46 O2 Saturation 100 07/22/19 15:46 - Procedures NST Procedure: heart tones noted. Procedure Details: Nitrazine, Pool, fern,and Rom + all negative. No evidence of SROM. Reassured.
== END 2019-07-22 16:25 | disposition home or self-care (01) ==
LOC: WFO 15:17 → FBP 15:19 → WFO 16:25
PROVIDERS: ATTEND Obstetrics & Gynecology
DX: Z34.82 Encounter for supervision of other normal pregnancy, second trimester (principal)
CPT/HCPCS: 81001; 81003; 84112; 87086; 99212; 99214

== ENCOUNTER 2019-07-31 06:49 | Outpatient (CLI) | payer OTHER ==
--- NOTE | 2019-08-01 13:40 | Ultrasound Report ---
Reason: SCREENING Procedure Date: 07/31/2019 Accession Number: [id number] / [id number] Procedure: US - OB Detailed Eval CPT Code: Final Report FULL RESULT: EXAM: COMPLETE OBSTETRICAL ULTRASOUND EXAM DATE: 07/31/2019 09:28 AM. CLINICAL HISTORY: anatomic survey. COMPARISON: OB LIMITED 06/12/2019 4:02 AM. TECHNIQUE: Real-time sonographic evaluation of the fetus performed by the supervisor paste plant. Multiple employment program representative static images were saved for review. DATING: Established EGA 20 weeks 1 day with VERONICA 12/17/2019 based on provider statement.. EGA 21 weeks 4 days with VERONICA 12/07/2019 based on LMP of 03/02/2019.. EGA 20 weeks 6 days with VERONICA 12/12/2019 based on the current ultrasound. GENERAL EVALUATION Fry . Cardiac activity: 140 bpm. movement: Present. Presentation: Variable Placenta: Anterior position with a succenturiate lobe wrapping fundal to posterior. No evidence for previa. Umbilical cord: 3 vessel cord. Central placental cord origin. Amniotic fluid: Subjectively normal. MVP 6.2 cm. BIOMETRY Bi-Parietal Diameter (BPD): 5 cm, 21 weeks 3 days Head Circumference (HC): 18.5 cm, 20 weeks 6 days Abdominal Circumference (AC): 15.7 cm, 20 weeks 6 days Femur Length (FL): 3.3 cm, 20 weeks 2 days Estimated Weight: 368 g, 74th percentile for 20 weeks 1 day. ANATOMY The intracranial structures, profile, face/nose/lips, 4 chamber heart and outflow tracts, stomach, abdominal wall and cord insertion, diaphragm, kidneys, bladder, and extremities were visualized and demonstrate no abnormality. The spine is not well seen due to position. MATERNAL STRUCTURES Uterus: Unremarkable. Cervix: Long and closed. Transabdominal length 4.4 cm. Right ovary/adnexa: Unremarkable. Left ovary/adnexa: Unremarkable. Free fluid: None. IMPRESSION: 1. Fry intrauterine with gestational age 20 weeks 1 day based on provider statement. 2. Estimated weight is within expected limits for assigned dating. 3. The spine is not well seen/evaluated today. Otherwise unremarkable anatomic survey. RADIA
== END 2019-07-31 06:50 | disposition home or self-care (01) ==
LOC: DI 06:49
PROVIDERS: ATTEND Obstetrics & Gynecology
DX: Z34.82 Encounter for supervision of other normal pregnancy, second trimester (principal)
CPT/HCPCS: 76811

== ENCOUNTER 2019-09-08 08:00 | Outpatient (CLI) | payer OTHER ==
[2019-09-09 20:42] LABS: CANDIDA GROUP DNA POSITIVE (NEGATIVE); CANDIDA KRUSEI DNA NEGATIVE (NEGATIVE); TRICHOMONAS VAGINALIS DNA NEGATIVE (NEGATIVE)
== END 2019-09-08 23:59 | disposition home or self-care (01) ==
LOC: LAB.R 08:00
PROVIDERS: ATTEND Obstetrics & Gynecology
DX: N76.0 Acute vaginitis (principal)
CPT/HCPCS: 87661; 87801

== ENCOUNTER 2019-10-01 11:19 | Outpatient (CLI) | payer OTHER ==
[2019-10-01 11:36] LABS: HGB - HEMOGLOBIN 10.7 g/dL (12.0-16.0); MEAN CORPUSCULAR HEMOGLOBIN 28.2 pg (27.0-31.0); MEAN CORPUSCULAR HGB CONC 32.4 g/dL (32.0-36.0); MEAN CORPUSCULAR VOLUME 86.8 fL (81.0-99.0); MEAN PLATELET VOLUME 9.9 fL (7.9-10.8); RED BLOOD COUNT 3.8 10^6/uL (4.20-5.40); RED CELL DISTRIBUTION WIDTH 12.5 % (12.0-15.0); WHITE BLOOD COUNT 9.4 x10^3/uL (4.8-10.8)
[2019-10-01 12:13] LABS: FERRITIN 7.1 ng/mL (11.0-306.8)
[2019-10-01 13:00] LABS: % IRON SATURATION 6 % (20-50); IRON 35 ug/dL (28-170); TOTAL IRON BINDING CAPACITY 616 ug/dL (250-450); TRANSFERRIN 440 mg/dL (192-382)
== END 2019-10-01 11:20 | disposition home or self-care (01) ==
LOC: LAB 11:19
PROVIDERS: ATTEND Obstetrics & Gynecology
DX: O26.819 Pregnancy related exhaustion and fatigue, unspecified trimester (principal); Z36.89 Encounter for other specified antenatal screening; Z3A.00 Weeks of gestation of pregnancy not specified; O23.10 Infections of bladder in pregnancy, unspecified trimester
CPT/HCPCS: 36415; 82728; 82950; 83540; 84443; 84466; 85027; 86850; 87086

== ENCOUNTER 2019-11-18 10:00 | Outpatient (CLI) | payer OTHER ==
[2019-11-18 19:02] LABS: CANDIDA GROUP DNA POSITIVE (NEGATIVE); CANDIDA KRUSEI DNA NEGATIVE (NEGATIVE); TRICHOMONAS VAGINALIS DNA NEGATIVE (NEGATIVE)
[2019-11-18 20:11] LABS: TRICHOMONAS VAGINALIS DNA NEGATIVE (NEGATIVE)
== END 2019-11-18 23:59 | disposition home or self-care (01) ==
LOC: LAB.R 10:00
PROVIDERS: ATTEND Obstetrics & Gynecology
DX: O09.90 Supervision of high risk pregnancy, unspecified, unspecified trimester (principal); O23.599 Infection of other part of genital tract in pregnancy, unspecified trimester
CPT/HCPCS: 87491; 87591; 87661; 87797; 87801

== ENCOUNTER 2019-11-20 04:29 | Inpatient (IN) | payer OTHER ==
--- NOTE | 2019-11-20 04:36 | HISTORY & PHYSICAL EXAMINATION ---
Admit History - Visit Reason Visit Reason: Membranes rupture (39yo at 36w1d by first trimester US not c/w LMP presents with c/o gush of clear fluid at 0330. Few mild contractions. No bleeding, normal activity. No vomiting, very mild nausea. No f/c dysuria or respiratory symptoms. Stopped antibiotic suppression 2 days ago) - : 3 Parity: 2 Premature: 1 Ectopic: 1 : 1 Care: positive: [facility] Complications This : positive: Other (Incarcerated uterus x2 complicated by pyelonephritis on suppression since then, DC'd 11/17, AMA) Smoking Status: Never smoker - Mother's Labs Mother's Blood Type: positive: A Mother's RH: positive: Positive GBS: positive: Group B Step Negative Rubella Status: positive: Immune (HIV/HepB NR GC/chlam neg Quad screen neg RPR not done Varicella immune Glucola 92) Meds/Allgy - Allergies Allergies/Adverse Reactions: Allergies Allergy/AdvReac Type Severity Reaction Status Date / Time No Known Drug Allergies Allergy Verified 06/12/19 01:03 Review of Systems - All Other Systems All Other Systems: reports: Other (As noted above) Physical - Abdominal Exam Contraction Frequency (min/apart): Rare, irregular Contraction Intensity: positive: Moderate Uterine Resting Tone: positive: Soft - Monitoring Strip Review: positive: Category I - Presentation Presentation: positive: Vertex (by scan) - Vaginal Exam Membranes: positive: Membranes ruptured Dilation (in cm): 0-1 by SSE Effacement (%): thick Cervical Position: positive: Midposition Plan for Labor - Plan For Labor Plan for Labor: 39yo at 36w1d by first trimester US not c/w LMP GBS neg presents with PPR OM. Vertex by scan. Planning epidural for labor CBC, T&S Epidural PRN Will start pitocin EFW 3400gms Expect Exam - Exam General: Alert, Oriented x3, No acute distress Lungs: Clear to auscultation, Normal air movement Cardiovascular: Regular rate, No murmurs Abdomen: Soft, No tenderness (Gravid, S=D) Neurological: Normal gait, Normal speech Psych/Mental Status: Mental status NL
[2019-11-20] MEDS ORDERED: SODIUM CHLORIDE FLUSH 0.9% 10 ML SYRINGE IVP PRN (05:00)
[2019-11-20] MEDS ORDERED: fentaNYL 100 MCG/2 ML VIAL IVP PRN (05:00)
[2019-11-20] MEDS ORDERED: OXYTOCIN/SODIUM CHLORIDE 500 ML IV SCH (05:00)
[2019-11-20] MEDS ORDERED: LACTATED RINGERS 1,000 ML IV SCH ×2 (05:00→17:00)
[2019-11-20] MEDS ORDERED: OXYTOCIN/SODIUM CHLORIDE 500 ML IV PRN (05:00)
[2019-11-20] MEDS ORDERED: ONDANSETRON 4 MG/2 ML VIAL IVP PRN ×2 (05:00→10:10)
--- NOTE | 2019-11-20 05:07 | DISCHARGE SUMMARY ---
Discharge Summary Admit Date: 11/20/19 Discharge Date: 11/22/19 Discharging Provider: Adri Kimble Code Status: Attempt Resuscitation Condition at Discharge: Good Discharge Disposition: 01 Home, Self Care - DIAGNOSES Admission Diagnoses: PPROM at 36w1d - HPI History of Present Illness: 39yo now P2102 at 36w1d by first trimester US not c/w LMP presented with c/o gush of clear fluid at 0330. Few mild contractions. No bleeding, normal activity. No vomiting, very mild nausea. No f/c dysuria or respiratory symptoms. Stopped antibiotic suppression 2 days [facility] - HOSPITAL COURSE Hospital Course: Vertex presentation was documented and pitocin was started. Her labor was complicated by recurrent variable decels. Amnioinfusion was done and she progressed to full dilation. She was delivered of a 3245gm male apgars 8/9 on 11/19. A velamentous cord insertion was noted. A second degree laceration was repaired. EBL 250cc. Her course was uncomplicated. She was well, ambulating, tolerating regular diet, voiding with minimal lochia. She is planning Mirena in 6 weeks. - ALLERGIES Allergies/Adverse Reactions: Allergies Allergy/AdvReac Type Severity Reaction Status Date / Time No Known Drug Allergies Allergy Verified 06/12/19 01:03 - PHYSICAL EXAM AT DISCHARGE General Appearance: positive: No acute distress, Alert Respiratory: positive: No respiratory distress Abdomen: positive: Non-tender, No distention (Fundus firm below umbilicus) - LABS Result Diagrams: 11/20/19 05:45
[2019-11-20] MEDS: LACTATED RINGERS 1,000 ML IV SCH ×3 (05:50→11:58)
[2019-11-20 06:05] LABS: BASOPHILS % (AUTO) 0.5 %; EOSINOPHILS # (AUTO) 0.1 10^3/uL (0.0-0.7); EOSINOPHILS % (AUTO) 1.2 %; HGB - HEMOGLOBIN 10.9 g/dL (12.0-16.0); LYMPHOCYTES # (AUTO) 1.5 10^3/uL (1.5-3.5); LYMPHOCYTES % (AUTO) 18.8 %; MEAN CORPUSCULAR HEMOGLOBIN 29.2 pg (27.0-31.0); MEAN CORPUSCULAR HGB CONC 32.6 g/dL (32.0-36.0); MEAN CORPUSCULAR VOLUME 89.5 fL (81.0-99.0); MEAN PLATELET VOLUME 10.5 fL (7.9-10.8); MONOCYTES # (AUTO) 0.7 10^3/uL (0.0-1.0); MONOCYTES % (AUTO) 8.3 %; NEUTROPHILS # (AUTO) 5.4 10^3/uL (1.5-6.6); NEUTROPHILS % (AUTO) 69.8 %; PLT - PLATELET COUNT 224 10^3/uL (130-450); RED BLOOD COUNT 3.73 10^6/uL (4.20-5.40); WHITE BLOOD COUNT 7.8 x10^3/uL (4.8-10.8)
[2019-11-20] MEDS ORDERED: miSOPROStoL 200 MCG TABLET ONE (08:29)
[2019-11-20] MEDS ORDERED: LIDOCAINE-MPF 1% 30 ML VIAL ONE (08:29)
--- NOTE | 2019-11-20 08:55 | PROVIDER PROGRESS NOTE ---
Subjective - Prog Note Date Prog Note Date: 11/20/19 Prog Note Time: 08:53 - Subjective Subjective: Starting to feel the contractions a bit. Declines epidural for now. VSS afeb Cat 1 tracing. Pit at 4. Contractions still quite spaced. Will continue to increase Expect Objective - Vital Signs/Intake & Output Vital Signs: Vital Signs x48h Temp Pulse Pulse Resp BP BP Pulse Ox 11/20/19 06:30 99.3 F 84 20 109/65 11/20/19 04:50 99.1 F 80 22 124/65 98 Intake & Output: Intake & Output 11/17/19 11/18/19 11/19/19 11/20/19 23:59 23:59 23:59 23:59 Intake Total 0.683 Output Total 300 Balance -299.317 - Lab Results Fish Bones: 11/20/19 05:45 Other Labs: Lab Results x24hrs 11/20/19 11/20/19 Range/Units 05:45 05:45 WBC 7.8 (4.8-10.8) x10^3/uL RBC 3.73 L (4.20-5.40) 10^6/uL Hgb 10.9 L (12.0-16.0) g/dL Hct 33.4 L (37.0-47.0) % MCV 89.5 (81.0-99.0) fL MCH 29.2 (27.0-31.0) pg MCHC 32.6 (32.0-36.0) g/dL RDW 15.0 (12.0-15.0) % Plt Count 224 (130-450) 10^3/uL MPV 10.5 (7.9-10.8) fL Neut # (Auto) 5.4 (1.5-6.6) 10^3/uL Lymph # (Auto) 1.5 (1.5-3.5) 10^3/uL [place] # (Auto) 0.7 (0.0-1.0) 10^3/uL Eos # (Auto) 0.1 (0.0-0.7) 10^3/uL Baso # (Auto) 0.0 (0.0-0.1) 10^3/uL Absolute Nucleated RBC 0.00 x10^3/uL Nucleated RBC % 0.0 /100WBC Blood Type A POSITIVE Antibody Screen NEGATIVE
[2019-11-20] MEDS ORDERED: SODIUM CHLORIDE FLUSH 0.9% 10 ML SYRINGE IVP SCH (09:00)
[2019-11-20] MEDS ORDERED: ROPIVACAINE 0.2% 200 MG/100 ML BAG EP ONE (09:33)
[2019-11-20] MEDS ORDERED: ROPIVACAINE 0.2% PF 20ML VIAL ONE (09:34)
[2019-11-20] MEDS ORDERED: NALBUPHINE 10 MG/ML AMP IVP PRN (10:10)
[2019-11-20] MEDS ORDERED: METOCLOPRAMIDE 10 MG/2 ML VIAL IVP PRN (10:10)
[2019-11-20] MEDS ORDERED: ePHEDrine 50 MG/ML VIAL IVP PRN (10:10)
[2019-11-20] MEDS ORDERED: NALOXONE 0.4 MG/ML VIAL IVP PRN (10:10)
[2019-11-20] MEDS ORDERED: LACTATED RINGERS 500 ML IV ONE (10:10)
[2019-11-20] MEDS ORDERED: ROPIVACAINE 0.2% 200 MG/100 ML BAG EP PRN (10:10)
[2019-11-20] MEDS ORDERED: diphenhydrAMINE INJ 50 MG/ML VIAL IVP PRN (10:10)
--- NOTE | 2019-11-20 10:12 | ANESTHESIA ---
Pre-Anesthesia VS, & Labs - Diagnosis term labor, IUP - Procedure Vaginal delivery Vital Signs: Temp Pulse Resp BP Pulse Ox 37.4 C 84 20 109/65 98 11/20/19 06:30 11/20/19 06:30 11/20/19 06:30 11/20/19 06:30 11/20/19 04:50 Height 5 ft 5 in Weight (kg) 86.183 kg Body Mass Index 25.9 - NPO Last Food Intake: full breakfast - Is Patient ?: Yes - Lab Results Current Lab Results: Laboratory Tests 11/20/19 05:45: Blood Type A POSITIVE, Antibody Screen NEGATIVE 11/20/19 05:45: WBC 7.8, RBC 3.73 L, Hgb 10.9 L, Hct 33.4 L, MCV 89.5, MCH 29.2, MCHC 32.6, RDW 15.0, Plt Count 224, MPV 10.5, Neut # (Auto) 5.4, Lymph # (Auto) 1.5, [place] # (Auto) 0.7, Eos # (Auto) 0.1, Baso # (Auto) 0.0, Absolute Nucleated RBC 0.00, Nucleated RBC % 0.0 Lab results reviewed: Yes Fish Bones: 11/20/19 05:45 Home Medications and Allergies Active Medications Acetaminophen (Tylenol) 650 mg PO Q6H PRN PRN Reason: PAIN Fentanyl (Fentanyl) 50 mcg IVP Q1H PRN PRN Reason: PAIN Oxytocin/Sodium Chloride (Pitocin/Sodium Chloride) 500 mls @ 1 mls/hr IV TITR MYAH; Protocol Last Titration: 11/20/19 06:55 Dose: 2 milliunit/min, 2 mls/hr Documented by: Oxytocin/Sodium Chloride (Pitocin/Sodium Chloride) 500 mls @ 999 mls/hr IV PRN PRN; Protocol PRN Reason: POST- HEMORR PREVENTION Lactated Ringer's (Lr) 1,000 mls @ 250 mls/hr IV .Q4H MYAH Last Infusion: 11/20/19 10:10 Dose: Infused Documented by: Ondansetron HCl (Zofran Inj) 4 mg IVP Q4H PRN PRN Reason: Nausea / Vomiting Sodium Chloride (Normal Saline Flush 0.9%) 10 ml IVP PRN PRN PRN Reason: NEEDED PER PROVIDER ORDERS Last Admin: 11/20/19 05:57 Dose: 10 ml Documented by: Sodium Chloride (Normal Saline Flush 0.9%) 10 ml IVP 0100,0900,1700 [facility] Allergies/Adverse Reactions: Allergies Allergy/AdvReac Type Severity Reaction Status Date / Time No Known Drug Allergies Allergy Verified 06/12/19 01:03 Anes History & Medical History - Anesthetic History Anesthesia Complications: reports: No previous complications Family history of Anesthesia Complications: Denies Family history of Malignant Hyperthermia: Denies - Medical History Cardiovascular: reports: None Pulmonary: reports: None Gastrointestinal: reports: None Urinary: reports: Retention Neuro: reports: None Musculoskeletal: reports: None Endocrine/Autoimmune: reports: None Blood Disorders: reports: None Skin: reports: None Smoking Status: Former smoker - Surgical History General: Other (hernia) - Obstetrical History : 3 Parity: 2 Complications: positive: Other (Incarcerated uterus x2 complicated by pyelonephritis on suppression since then, DC'd 11/17, AMA) Exam General: Alert, Oriented x3, Cooperative Dental: WNL Mouth Openin Fingerbreadth Neck Mobility: Normal Mallampati classification: II Thyromental Distance: greater than 6 cm Respiratory: No respiratory distress Cardiovascular: Regular rate Neurological: Normal speech Plan Anesthesia Type: Epidural Consent for Procedure(s) Verified and Reviewed: Yes Code Status: Attempt Resuscitation ASA classification: 2-Mild systemic disease Is this case an emergency?: No
--- NOTE | 2019-11-20 10:18 | PROVIDER PROGRESS NOTE ---
Subjective - Prog Note Date Prog Note Date: 11/20/19 Prog Note Time: 10:16 - Subjective Subjective: Comfortable with epidural VSS afeb Category 1 Pit at 6 Contractions were q3, now q3-5 Cervix 2/long/high Defer exam for now Continue to increase pit. Urinary mujica Objective - Vital Signs/Intake & Output Vital Signs: Vital Signs x48h Temp Pulse Pulse Resp BP BP Pulse Ox 11/20/19 06:30 99.3 F 84 20 109/65 11/20/19 04:50 99.1 F 80 22 124/65 98 Intake & Output: Intake & Output 11/17/19 11/18/19 11/19/19 11/20/19 23:59 23:59 23:59 23:59 Intake Total 1000.683 Output Total 750 Balance 250.683 - Lab Results Fish Bones: 11/20/19 05:45 Other Labs: Lab Results x24hrs 11/20/19 11/20/19 Range/Units 05:45 05:45 WBC 7.8 (4.8-10.8) x10^3/uL RBC 3.73 L (4.20-5.40) 10^6/uL Hgb 10.9 L (12.0-16.0) g/dL Hct 33.4 L (37.0-47.0) % MCV 89.5 (81.0-99.0) fL MCH 29.2 (27.0-31.0) pg MCHC 32.6 (32.0-36.0) g/dL RDW 15.0 (12.0-15.0) % Plt Count 224 (130-450) 10^3/uL MPV 10.5 (7.9-10.8) fL Neut # (Auto) 5.4 (1.5-6.6) 10^3/uL Lymph # (Auto) 1.5 (1.5-3.5) 10^3/uL Sac # (Auto) 0.7 (0.0-1.0) 10^3/uL Eos # (Auto) 0.1 (0.0-0.7) 10^3/uL Baso # (Auto) 0.0 (0.0-0.1) 10^3/uL Absolute Nucleated RBC 0.00 x10^3/uL Nucleated RBC % 0.0 /100WBC Blood Type A POSITIVE Antibody Screen NEGATIVE
--- NOTE | 2019-11-20 11:44 | PROVIDER PROGRESS NOTE ---
Subjective - Prog Note Date Prog Note Date: 11/20/19 Prog Note Time: 11:41 - Subjective Subjective: Decels with some contractions, variable in character. VSS afeb Pit at 8mu/min, contractions now q2-3 Exam 50/-2 anterior A/P Good progress. Has maintained moderate variability, +accels. Mostly resolved with fluid bolus (somewhat hypotensive) and position change. Oxygen applied. Continue close monitoring, pit at current rate. Objective - Vital Signs/Intake & Output Vital Signs: Vital Signs x48h Temp Pulse Pulse Resp BP BP Pulse Ox 11/20/19 06:30 99.3 F 84 20 109/65 11/20/19 04:50 99.1 F 80 22 124/65 98 Intake & Output: Intake & Output 11/17/19 11/18/19 11/19/19 11/20/19 23:59 23:59 23:59 23:59 Intake Total 1000.683 Output Total 1710 Balance -709.317 - Lab Results Fish Bones: 11/20/19 05:45 Other Labs: Lab Results x24hrs 11/20/19 11/20/19 Range/Units 05:45 05:45 WBC 7.8 (4.8-10.8) x10^3/uL RBC 3.73 L (4.20-5.40) 10^6/uL Hgb 10.9 L (12.0-16.0) g/dL Hct 33.4 L (37.0-47.0) % MCV 89.5 (81.0-99.0) fL MCH 29.2 (27.0-31.0) pg MCHC 32.6 (32.0-36.0) g/dL RDW 15.0 (12.0-15.0) % Plt Count 224 (130-450) 10^3/uL MPV 10.5 (7.9-10.8) fL Neut # (Auto) 5.4 (1.5-6.6) 10^3/uL Lymph # (Auto) 1.5 (1.5-3.5) 10^3/uL [place] # (Auto) 0.7 (0.0-1.0) 10^3/uL Eos # (Auto) 0.1 (0.0-0.7) 10^3/uL Baso # (Auto) 0.0 (0.0-0.1) 10^3/uL Absolute Nucleated RBC 0.00 x10^3/uL Nucleated RBC % 0.0 /100WBC Blood Type A POSITIVE Antibody Screen NEGATIVE
[2019-11-20] MEDS ORDERED: SODIUM CHLORIDE 0.9% 1,000 ML IV ONE (13:59)
--- NOTE | 2019-11-20 14:41 | PROVIDER PROGRESS NOTE ---
Subjective - Prog Note Date Prog Note Date: 11/20/19 Prog Note Time: 14:39 - Subjective Subjective: Amnioinfusion marginally helped initially, now with recurrent variable decels. Still with rapid recovery, response to position changes. VSS afeb Pit continues at 8 VE now 8cm/100/0 Rapid progress. Continue current plan. Peds called. Objective - Vital Signs/Intake & Output Intake & Output: Intake & Output 11/17/19 11/18/19 11/19/19 11/20/19 23:59 23:59 23:59 23:59 Intake Total 1446.516 Output Total 2185 Balance -738.484 - Lab Results Fish Bones: 11/20/19 05:45 Other Labs: Lab Results x24hrs 11/20/19 11/20/19 Range/Units 05:45 05:45 WBC 7.8 (4.8-10.8) x10^3/uL RBC 3.73 L (4.20-5.40) 10^6/uL Hgb 10.9 L (12.0-16.0) g/dL Hct 33.4 L (37.0-47.0) % MCV 89.5 (81.0-99.0) fL MCH 29.2 (27.0-31.0) pg MCHC 32.6 (32.0-36.0) g/dL RDW 15.0 (12.0-15.0) % Plt Count 224 (130-450) 10^3/uL MPV 10.5 (7.9-10.8) fL Neut # (Auto) 5.4 (1.5-6.6) 10^3/uL Lymph # (Auto) 1.5 (1.5-3.5) 10^3/uL [place] # (Auto) 0.7 (0.0-1.0) 10^3/uL Eos # (Auto) 0.1 (0.0-0.7) 10^3/uL Baso # (Auto) 0.0 (0.0-0.1) 10^3/uL Absolute Nucleated RBC 0.00 x10^3/uL Nucleated RBC % 0.0 /100WBC Blood Type A POSITIVE Antibody Screen NEGATIVE
[2019-11-20] MEDS ORDERED: WITCH HAZEL/GLYCERIN 1 PAD TOP PRN (16:47)
[2019-11-20] MEDS ORDERED: HYDROCORTISONE 1% CREAM 28 GM TUBE PR PRN (16:47)
[2019-11-20] MEDS: ACETAMINOPHEN 325 MG TABLET PO PRN ×2 (16:48→23:05)
--- NOTE | 2019-11-20 16:52 | DELIVERY NOTE ---
Delivery Note - Labor Labor: positive: Induced by oxytocin - Delivery Method Delivery Method: positive: Spontaneous vaginal delivery - Presentation Presentation: positive: Vertex, LOP - left occiput posterior - Nuchal Cord Nuchal Cord: positive: None (Three vessels, velamentous insertion) - Anesthetic Anesthetic Type: - Amniotic Fluid Description Amniotic Fluid Description: positive: Clear - Episiotomy Type Episiotomy Type: positive: None - Laceration Laceration: positive: 2nd degree - Suture Suture Type: positive: Vicryl Suture Size: positive: 2-0 - Delivery Outcome Delivery Outcome: positive: Livebirth - [place]: positive: Placed in direct skin contact with mother, Suctioned, Bulb syringe, Stimulated, Warmed, [place] used [place] sex: positive: Male - Cord Cord: positive: 3 vessels - Placenta Placenta: positive: Intact, Spontaneous (Velamentous insertion with large vessels traversing >50% membrane) - Estimated Blood Loss Estimated Blood Loss (in cc): 250 - Post Delivery Events Post Delivery Events: positive: No post delivery events - Delivery Comments (Free Text/Narrative) Delivery Comments (Free Text/Narrative): of 3245gm male apgars 8/9 from slight LOP. Spontaneous cry. Placenta spontaneous, minimal traction. Intact with velamentous cord insertion. Large vessels traversing >50% surface of membranes. Cervix, upper vagina, rectum intact. Second degree laceration repaired. Marked labial edema. Epidural anesthesia. EBL 250cc I performed the entire procedure.
[2019-11-20] MEDS ORDERED: fentaNYL 100 MCG/2 ML VIAL ONE (17:00)
--- NOTE | 2019-11-20 17:08 | CONSULTATION NOTE ---
Consultation Report: Called to address pain associated with delivery and subsequent laceration requiring repair. No level assessed as epidural had been off. Dosed with 10cc 1% Lidocaine and Fentanyl 100mcg (2cc). Pt states pain much better after bolus. VSS.
[2019-11-20] MEDS: IBUPROFEN 600 MG TABLET PO PRN ×2 (17:24→23:47)
[2019-11-20] MEDS: HYDROcod/ACETAM 5/325 MG TABLET PO PRN (20:01)
[2019-11-21] MEDS: HYDROcod/ACETAM 5/325 MG TABLET PO PRN ×2 (00:08→04:54)
[2019-11-21] MEDS: ACETAMINOPHEN 325 MG TABLET PO PRN ×4 (04:59→17:09)
[2019-11-21] MEDS: IBUPROFEN 600 MG TABLET PO PRN ×4 (04:59→17:09)
--- NOTE | 2019-11-21 06:39 | PROVIDER PROGRESS NOTE ---
Subjective - Prog Note Date Prog Note Date: 11/21/19 Prog Note Time: 06:35 - Subjective Subjective: PPD 1 Feeling very tired, still noting moderate perineal pain, and pain from contractions when she nurses. Normal lochia. Tolerating reg diet. Voiding. going well. VSS afeb Abd soft, non-tender, fundus firm at umbilicus. Much decreased labial edema A/P Stable. Continue pain meds, ice to perineum Continue routine care. Baby 24h old around 5P; may need another day prior to DC. Will reassess later today. Objective - Vital Signs/Intake & Output Vital Signs: Vital Signs x48h Temp Pulse Resp BP Pulse Ox 11/21/19 04:30 98.6 F 68 18 115/62 99 11/20/19 23:45 99 F 69 18 110/60 99 Intake & Output: Intake & Output 11/18/19 11/19/19 11/20/19 11/21/19 23:59 23:59 23:59 23:59 Intake Total 4695.833 500 Output Total 3125 Balance 1570.833 500 - Lab Results Fish Bones: 11/20/19 05:45 Other Labs: Lab Results x24hrs 11/20/19 Range/Units 05:45 Blood Type A POSITIVE Antibody Screen NEGATIVE
[2019-11-21] MEDS ORDERED: DOCUSATE SODIUM 100 MG CAPSULE PO SCH (09:00)
--- NOTE | 2019-11-22 07:43 | PROVIDER PROGRESS NOTE ---
Subjective - Prog Note Date Prog Note Date: 11/22/19 Prog Note Time: 07:41 - Subjective Subjective: PPD 2 Feeling better. Ambulating, reg diet, voiding. Minimal lochia. going well. VSS afeb Abd soft, non-tender. Fundus firm below umbilicus Labial edema significantly decreased. A/P Stable. Plan DC home today. Planning Mirena. Objective - Vital Signs/Intake & Output Vital Signs: Vital Signs x48h Temp Pulse Resp BP Pulse Ox 11/22/19 06:01 98.4 F 65 18 115/65 99 11/22/19 01:11 98.8 F 79 18 113/64 99 Intake & Output: Intake & Output 11/19/19 11/20/19 11/21/19 11/22/19 23:59 23:59 23:59 23:59 Intake Total 4695.833 1000 500 Output Total 3125 Balance 6952.004 2203 500 - Lab Results Fish Bones: 11/20/19 05:45
--- NOTE | 2019-11-22 07:52 | Discharge Plan ---
Discharge Plan Problem Reviewed?: Yes Disposition: Home, Self Care Condition: Good Prescriptions: Ibuprofen [Motrin] 600 mg PO Q6H PRN #30 tablet PRN Reason: Pain Pnv No.100/Iron/Folic/Dha/Epa [Theranatal One Softgel] 1 each PO DAILY #100 capsule Witch Olivia/Glycerin [Tucks] 1 pad TOP QID PRN #1 pkg PRN Reason: Itching Acetaminophen [Tylenol] 650 mg PO Q6H PRN #50 tablet PRN Reason: Pain Diet: Regular Activity Restrictions: pelvic rest Shower Restrictions: No No Smoking: If you smoke, Please STOP! Call for help. Follow-up with: Brigitte Garcia PA-C [Primary Care Provider] -
[2019-11-22 12:57] VITALS: BP 122/74
[2019-11-22] MEDS: ACETAMINOPHEN 325 MG TABLET PO PRN (12:59)
[2019-11-22] MEDS: IBUPROFEN 600 MG TABLET PO PRN (12:59)
--- NOTE | 2019-11-22 13:06 | Labor Flowsheet ---
Labor Flowsheet Datetime Report Generated by CPN: 11/22/2019 13:06 Datetime: 11/22/2019 12:51 VITAL SIGNS NBP Sys/Marie/Mean (mmHg): 122 : 74 : 85 Pulse: 77 Datetime: 11/21/2019 19:35 SpO2 (%): 98 Datetime: 11/20/2019 18:15 Temperature (C): 37.0 Datetime: 11/20/2019 16:19 Stage of : Recovery Stage 2 Comments: time of Datetime: 11/20/2019 16:16 UTERINE ACTIVITY Monitor Mode: Internal Frequency (min): 2-2.5 Quality: Strong Duration (sec): 50-60 Pattern: Normal: <= 5 Contractions in 10 Minutes Resting Tone (Palpate): Relaxed Resting Tone IUP (mmHg): 0 Intensity IUP (mmHg): 90-100 Comments: pt pushing with contractions, Broken tracing, unable to determine baseline. Datetime: 11/20/2019 16:15 FHR Baseline Rate : 120 LaborFlag: Labor Datetime: 11/20/2019 16:03 MEDICATIONS Pitocin (milliunits): Increased to @ 10 Medication Comments: per dr hernandez Datetime: 11/20/2019 16:00 Contraction Comments: pt cont to push with contractions Datetime: 11/20/2019 15:56 PATIENT CARE IV/Blood Work: New IV Bag Hung Datetime: 11/20/2019 15:14 STAGE 2 Pushing: Urge to Push Pushing Position: Pushing with Contractions Datetime: 11/20/2019 15:08 Exam by: Dr Erber Vaginal Exam Comments: complete Datetime: 11/20/2019 15:01 ASSESSMENT A Monitor Mode: Telemetry Datetime: 11/20/2019 15:00 Variability: Moderate 6-25 bpm Accelerations: None Decelerations: Variable Category: Category II Oxygen Amount (LPM): 10 Oxygen Method: Non-Rebreather Datetime: 11/20/2019 14:38 Patient Position/Activity: High Fowlers Datetime: 11/20/2019 14:34 VAGINAL EXAM Dilatation (cm): 7.0 Effacement (%): 100 Station: 0 COMMUNICATION Communication: Provider at Bedside Notification Reason: Status; Labor Status Datetime: 11/20/2019 14:07 Patient Care Comments: pt leaning on peanut ball right side high fowlers Datetime: 11/20/2019 14:00 Monitor Interventions for UA: IUPC Inserted Datetime: 11/20/2019 11:34 Cervix, Position: Anterior Datetime: 11/20/2019 10:24 I/O Interventions: Acevedo Cath Inserted Datetime: 11/20/2019 10:04 Epidural Procedure: Loading Dose Datetime: 11/20/2019 10:01 Epidural Positioning: Side Lying Anesthesia Comments: Right Datetime: 11/20/2019 09:50 Monitor Interventions for FHR: Ultrasound Adjusted Datetime: 11/20/2019 09:36 PROCEDURE TIME OUT Procedure Verify: Correct Patient Identity; Correct Side and Site are Marked; Accurate Procedure Co nsent Form; Agreement on Procedure to be Done; Correct Patient Position; Relevant Images and Results are Properly Labeled and Displayed; Addressed Need to Administer Antibiotics or Fluids for Irrigation ; Safety Precautions Based on Patient History or Medication Use ANESTHESIA Anesthesia Plans: Epidural Datetime: 11/20/2019 08:45 FHR Baseline Changes: No Baseline Change Datetime: 11/20/2019 08:11 Provider Reviewed Strip: Yes Communication Comments: reviewed pain control Datetime: 11/20/2019 08:04 Respirations: 18 Datetime: 11/20/2019 06:42 Pitocin Checklist: At Least 1 Acceleration of 15 bpm x 15 Seconds in 30 Minutes or Adequate Variabi lity; No More than 1 Late Deceleration Occurred in Past 30 Minutes; No More than 2 Variable Decelerat ions > 60 Seconds in Duration and decreasing >60 bpm in 30 minutes; No More than 5 Uterine Contractio ns in 10 Minutes for any 20 Minute Interval; Uterus Palpates Soft between Contractions Datetime: 11/20/2019 06:19 PAIN Pain Scale: 3 Pain Presence: Intermittent Pain Type: Contraction Pain Location: Right Groin; Left Groin Pain Relief Measures: Comfort Measures Pain Coping: Talking Through Contractions; Breathing Through Contractions
== END 2019-11-22 13:04 | disposition home or self-care (01) | DRG 807 ==
LOC: WFO 04:29 → FBP 04:31 → WFO 04:59 → FBP 05:00
PROVIDERS: ADMIT Obstetrics & Gynecology; ATTEND Obstetrics & Gynecology
PROC: 10E0XZZ Delivery of Products of Conception, External Approach (ICD-10-PCS; principal; 2019-11-20)
PROC: 0KQM0ZZ Repair Perineum Muscle, Open Approach (ICD-10-PCS; 2019-11-20)
PROC: 3E033VJ Introduction of Other Hormone into Peripheral Vein, Percutaneous Approach (ICD-10-PCS; 2019-11-20)
PROC: 3E0E7GC Introduction of Other Therapeutic Substance into Products of Conception, Via Natural or Artificial Opening (ICD-10-PCS; 2019-11-20)
DX: O42.013 Preterm premature rupture of membranes, onset of labor within 24 hours of rupture, third trimester (principal); Z37.0 Single live birth; O64.0XX0 Obstructed labor due to incomplete rotation of fetal head, not applicable or unspecified; O34.5 Maternal care for other abnormalities of gravid uterus; N85.8 Other specified noninflammatory disorders of uterus; O43.123 Velamentous insertion of umbilical cord, third trimester; O70.1 Second degree perineal laceration during delivery; O76 Abnormality in fetal heart rate and rhythm complicating labor and delivery; Z3A.36 36 weeks gestation of pregnancy
CPT/HCPCS: 85025; 86850; 86900; 86901; 99213; A9270; J2795; J7120; 85027

== ENCOUNTER 2020-02-23 14:10 | Outpatient (CLI) | payer OTHER | END 2020-02-23 23:59 | disposition home or self-care (01) | LOC: LAB.R 14:10 | PROVIDERS: ATTEND Internal Medicine | DX: J02.9 Acute pharyngitis, unspecified (principal) | CPT/HCPCS: 87070 ==

== ENCOUNTER 2020-08-19 11:34 | Outpatient (CLI) | payer OTHER ==
[2020-08-19 12:18] LABS: % IRON SATURATION 22 % (20-50); IRON 72 ug/dL (28-170); TOTAL IRON BINDING CAPACITY 321 ug/dL (250-450); TRANSFERRIN 229 mg/dL (192-382)
== END 2020-08-19 11:35 | disposition home or self-care (01) ==
LOC: LAB 11:34
PROVIDERS: ATTEND Registered Nurse
DX: D64.9 Anemia, unspecified (principal)
CPT/HCPCS: 36415; 82728; 83540; 84466

== ENCOUNTER 2020-10-06 08:00 | Outpatient (CLI) | payer OTHER ==
[2020-10-07 21:29] LABS: BACTERIAL VAGINOSIS DNA NEGATIVE (NEGATIVE); CANDIDA GLABRATA DNA NEGATIVE (NEGATIVE); CANDIDA GROUP DNA POSITIVE (NEGATIVE); CANDIDA KRUSEI DNA NEGATIVE (NEGATIVE); TRICHOMONAS VAGINALIS DNA NEGATIVE (NEGATIVE)
== END 2020-10-06 23:59 | disposition home or self-care (01) ==
LOC: LAB.WC 08:00
PROVIDERS: ATTEND Advanced Practice Midwife
DX: N76.0 Acute vaginitis (principal)
CPT/HCPCS: 87661; 87801

== ENCOUNTER 2020-11-26 08:00 | Outpatient (CLI) | payer OTHER | END 2020-11-26 23:59 | disposition home or self-care (01) | LOC: LAB.N 08:00 | PROVIDERS: ATTEND Physician Assistant Medical | DX: R39.9 Unspecified symptoms and signs involving the genitourinary system (principal) | CPT/HCPCS: 87086 ==

== ENCOUNTER 2020-11-30 10:59 | Outpatient (CLI) | payer OTHER ==
--- NOTE | 2020-11-30 17:20 | XRAY Report ---
PROCEDURE: Hip w/Pelvis 1V RT INDICATIONS: FALL WITH R HIP PX TECHNIQUE: AP pelvis with lateral view(s) of the right hip(s). COMPARISON: Prior abdomen/FINDINGS: Bones: No fractures or dislocations. Pelvic ring appears intact. No suspicious bony lesions. Soft tissues: The visualized bowel gas pattern is normal. No suspicious soft tissue calcifications. Centrally positioned IUD. IMPRESSION: No trauma found. Centrally positioned IUD. Reviewed by: Dheeraj Chacon MD on 11/30/2020 5:19 PM PDT Approved by: Dheeraj Chacon MD on 11/30/2020 5:19 PM PDT Station ID: [id number]
== END 2020-11-30 23:59 | disposition home or self-care (01) ==
LOC: DI.N 10:59
PROVIDERS: ATTEND Nurse Practitioner
DX: M25.551 Pain in right hip (principal)

== ENCOUNTER 2021-07-19 16:28 | Outpatient (CLI) | payer OTHER ==
[2021-07-19 16:41] LABS: BASOPHILS # (AUTO) 0.1 10^3/uL (0.0-0.1); BASOPHILS % (AUTO) 1.7 %; EOSINOPHILS # (AUTO) 0.2 10^3/uL (0.0-0.7); EOSINOPHILS % (AUTO) 3.7 %; HCT - HEMATOCRIT 42.7 % (37.0-47.0); HGB - HEMOGLOBIN 13.5 g/dL (12.0-16.0); LYMPHOCYTES # (AUTO) 1.6 10^3/uL (1.5-3.5); LYMPHOCYTES % (AUTO) 34.3 %; MEAN CORPUSCULAR HEMOGLOBIN 29.3 pg (27.0-31.0); MEAN CORPUSCULAR HGB CONC 31.6 g/dL (32.0-36.0); MEAN CORPUSCULAR VOLUME 92.8 fL (81.0-99.0); MEAN PLATELET VOLUME 11.9 fL (7.9-10.8); MONOCYTES # (AUTO) 0.3 10^3/uL (0.0-1.0); MONOCYTES % (AUTO) 7.2 %; NEUTROPHILS # (AUTO) 2.4 10^3/uL (1.5-6.6); NEUTROPHILS % (AUTO) 52.9 %; PLT - PLATELET COUNT 227 10^3/uL (130-450); RED CELL DISTRIBUTION WIDTH 12.4 % (12.0-15.0); WHITE BLOOD COUNT 4.6 x10^3/uL (4.8-10.8)
[2021-07-19 17:08] LABS: % IRON SATURATION 39 % (20-50); ALBUMIN 4.5 g/dL (3.2-5.5); ALBUMIN/GLOBULIN RATIO 1.7 (1.0-2.2); ALKALINE PHOSPHATASE 33 IU/L (42-121); ALT ALANINE AMINOTRANSFERASE 14 IU/L (10-60); AST ASPARTATE AMINOTRANSFERASE 16 IU/L (10-42); BUN - BLOOD UREA NITROGEN 13 mg/dL (6-20); CALCIUM 8.9 mg/dL (8.5-10.3); CARBON DIOXIDE - CO2 24 mmol/L (21-32); CHLORIDE 102 mmol/L (101-111); CHOL/HDL RATIO 2.7 (<4.4); CHOLESTEROL 199 mg/dL; CREATININE 0.9 mg/dL (0.4-1.0); GFR - MDRD 70 (>89); GLUCOSE 80 mg/dL (70-100); HDL CHOLESTEROL 75 mg/dL; IRON 125 ug/dL (28-170); LDL CHOLESTEROL,CALCULATED 114 mg/dL; LDL/HDL RATIO 1.5 (<4.4); POTASSIUM 4.3 mmol/L (3.5-5.0); SODIUM 134 mmol/L (135-145); TOTAL IRON BINDING CAPACITY 323 ug/dL (250-450); TOTAL PROTEIN 7.2 g/dL (6.7-8.2); TRANSFERRIN 231 mg/dL (192-382); TRIGLYCERIDES 48 mg/dL; VLDL CHOLESTEROL 10 mg/dL
[2021-07-19 17:20] LABS: THYROID STIMULATING HORMONE 1.59 uIU/mL (0.34-5.60)
[2021-07-19 17:26] LABS: FERRITIN 128.7 ng/mL (11.0-306.8)
[2021-07-19 21:23] LABS: ESTIMATED AVERAGE GLUCOSE 100 mg/dL (70-100); HEMOGLOBIN A1c% 5.1 % (4.27-6.07)
== END 2021-07-19 16:29 | disposition home or self-care (01) ==
LOC: LAB.R 16:28
PROVIDERS: ATTEND Internal Medicine
DX: D64.9 Anemia, unspecified (principal); F32.A Depression, unspecified; R03.0 Elevated blood-pressure reading, without diagnosis of hypertension; B37.3 Candidiasis of vulva and vagina
CPT/HCPCS: 80053; 80061; 82728; 83036; 83540; 83721; 84443; 84466; 85025

== ENCOUNTER 2022-03-07 10:44 | Outpatient (CLI) | payer OTHER ==
--- NOTE | 2022-03-08 10:15 | Mammography Report ---
BILATERAL DIGITAL DIAGNOSTIC MAMMOGRAM 3D/2D: 03/07/2022 CLINICAL: Focal right breast pain. Comparison is made to exam dated: 10/10/2017 mammogram - [facility]. Both breasts are heterogeneously dense, which may obscure small masses (category c / 51-75% glandula r tissue). No significant masses, calcifications, or other findings are seen in either breast. IMPRESSION: INCOMPLETE: NEEDS ADDITIONAL IMAGING EVALUATION There is no abnormality seen in the right breast to correspond with the area of clinical concern at 1 0 o'clock, however, ultrasound is recommended. Based on the Tyrer Cuzick model (a risk assessment model) the patients lifetime risk is 8.7% and her 10 year risk is 1.0%. According to the ACR, ACS, and NCCN guidelines, an annual breast MRI exam jair g with mammogram is recommended if the patients lifetime risk is 20% or greater. This exam was interpreted at Station ID: [id number]. NOTE: For mammograms, a report in lay terms will be sent to the patient. Approximately 15% of breast malignancies will not be visualized mammographically. In the management of a palpable breast mass, a negative mammogram must not discourage biopsy of a clinically suspicious lesion. Electronically Signed By: Fernando Huffman M.D. lc/:03/07/2022 11:50:19 ACR BI-RADS Category 0: Incomplete 3340F PARENCHYMAL PATTERN: (D) - The breast(s) demonstrate(s) heterogeneously dense fibroglandular parenchy ma. BI-RADS CATEGORY: (0) - 0 Ultrasound [id number] Immediate follow-up LATERALITY: (B)
--- NOTE | 2022-03-08 10:15 | Ultrasound Report ---
LIMITED ULTRASOUND OF RIGHT BREAST: 03/07/2022 CLINICAL: Focal right breast pain. Comparison is made to exams dated: 03/07/2022 mammogram - [facility] and 10/10/2017 m ammogram - [facility]. Color flow ultrasound of the right breast 9-11 o'clock region was performed. Yanez scale images of th e real-time examination were reviewed. IMPRESSION: NEGATIVE There is no sonographic evidence of malignancy. There is no abnormality seen in the right breast to correspond with the area of clinical concern at 1 0 o'clock which likely represents normal fibroglandular tissue, however, clinical correlation and cli nical followup are recommended. Return to annual mammogram screening schedule is recommended. This exam was interpreted at Station ID: [id number]. Electronically Signed By: Fernando Huffman M.D. lc/:03/07/2022 11:51:40 Entry: - 03/08/2022 10:03:41 Ultrasound BI-RADS: 1 Negative BI-RADS CATEGORY: (1) - 1 RECOMMENDATION: (ANNUAL) - Recommend routine annual screening mammography. [id number] 1 year screening LATERALITY: (B)
== END 2022-03-07 10:45 | disposition home or self-care (01) ==
LOC: DI 10:44
PROVIDERS: ATTEND Internal Medicine
DX: N64.59 Other signs and symptoms in breast (principal); N64.4 Mastodynia

== ENCOUNTER 2022-03-25 08:00 | Outpatient (CLI) | payer OTHER | END 2022-03-25 23:59 | disposition home or self-care (01) | LOC: LAB.N 08:00 | PROVIDERS: ATTEND Registered Nurse | DX: N12 Tubulo-interstitial nephritis, not specified as acute or chronic (principal); N30.00 Acute cystitis without hematuria; R10.9 Unspecified abdominal pain | CPT/HCPCS: 87086 ==